=== PATIENT | female | born 2005 | race Caucasian/White ===

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

== ENCOUNTER 2024-07-04 16:38 | Outpatient (CLI) | payer MEDICAID, SELFPAY ==
--- OUTSIDE RECORDS SUMMARY | 2024-07-04 16:47 | XMS_ITS | Continuity of Care Document ---
Author Organization [facility] Address [address] [place] [address] Care Team Providers Care Offset Printing Pressmen Name Role Phone Vicente García Primary Care Physician ( [phone] Encounter [facility] Date(s): 06/12/24 - 06/12/[address] [address] Discharge Disposition: Home or Self Care Attending Physician: Vicente García NP Admitting Physician: Vicente García NP Allergies, Adverse Reactions, Alerts No Known Medication Allergies Substance Criticality Severity Reaction Reaction Severity Status Dust Unable to assess criticality Unknown Active Seasonal Unable to assess criticality Unknown Active Animal Dander Unable to assess criticality Unknown Active Glutens 1, 2 High criticality Moderate Active 1Correction [facility] 02/03/24 2[facility] - 02/03/24 Assessment and Plan Future Appointments Diagnostic Tests Pending * Lisdexamfetamine as Metabolite, Ur SOTO 06/12/24 Future Scheduled Tests Laboratory* Beta hCG Quantitative 04/14/24 * Urinalysis with Microscopic 03/21/24 * Urine Culture 03/21/24 Immunizations Given and Recorded Vaccine Date Status Refusal Reason tetanus/diphth/pertuss (Tdap) adult/adol 10/28/23 Given tetanus/diphth/pertuss (Tdap) adult/adol 08/14/15 Recorded meningococcal B, unspecified 01/08/22 Recorded meningococcal B, unspecified 1, 2 01/08/22 Recorde d SARS-CoV-2 (COVID-19) mRNA BNT-162b2 vax 10/23/21 Recorded SARS-CoV-2 (COVID-19) mRNA BNT-162b2 vax 03/26/21 Recorded SARS-CoV-2 (COVID-19) mRNA BNT-162b2 vax 03/05/21 Recorded influenza, unspecified formulation 10/22/21 Record ed meningococcal ACWY, unspecified formulat 3 01/07/21 Recorded meningococcal ACWY, unspecified formulat 4 12/16/15 Recorded hepatitis A pediatric vaccine 01/02/20 Recorded hepatitis A pediatric vaccine 09/13/17 Recorded hepatitis A pediatric vaccine 08/19/16 Recorded influenza virus vaccine, inactivated 07/02/19 Gregg rded hepatitis B pediatric vaccine 03/18/19 Recorded hepatitis B pediatric vaccine 04 Recorded human papillomavirus vaccine 09/13/18 Recorded human papillomavirus vaccine 08/19/16 Recorded human papillomavirus vaccine 12/16/15 Recorded human papillomavirus vaccine 08/14/15 Recorded human papillomavirus vaccine 05/31/15 Recorded varicella virus vaccine 04/25/09 Recorded varicella virus vaccine 08/11/05 Recorded measles/mumps/rubella virus vaccine 04/25/09 Recor ded measles/mumps/rubella virus vaccine 06/03/05 Recor ded poliovirus vaccine, inactivated 07/18/08 Recorded DTaP, unspecified formulation 07/18/08 Recorded DTaP, unspecified formulation 08/11/05 Recorded Hib, unspecified formulation 08/11/05 Recorded Hib, unspecified formulation 04 Recorded Hib, unspecified formulation 04 Recorded Hib, unspecified formulation 04 Recorded pneumococcal 7-valent vaccine 06/03/05 Recorded pneumococcal 7-valent vaccine 04 Recorded pneumococcal 7-valent vaccine 04 Recorded pneumococcal 7-valent vaccine 04 Recorded diphth/tetanus/pertussis,acel/hepB/polio 04 Recorded diphth/tetanus/pertussis,acel/hepB/polio 04 Recorded diphth/tetanus/pertussis,acel/hepB/polio 04 Recorded 1Result Comment: 4C, OMV 2Result Comment: 4C, OMV duplicate 3Result Comment: MCV4P 4Result Comment: MCV4P Medications Albuterol (Eqv-ProAir HFA) 90 mcg/inh inhalation aerosol 2 puffs, Inhale, every 4 hr, Use inhaler every 4 hours as needed for cough or wheeze., # 8.5 g, 3 Refill(s), Pharmacy: [id number], 170, cm, 08/04/23 15:52:00 EDT, Height/Length Dosing, 146.8, kg, 10/12/23 9:45:00 EST, Weight Dosing Start Date: 10/12/23 Status: Ordered albuterol 90 mcg/inh aerosol inhaler 180 mcg 2 puffs, Inhale, every 4 hr, PRN as needed for wheezing, take 2 puffs prior to exercise andprn as needed, # 8.5 g, 3 Refill(s), Pharmacy: [id number], 170, cm, 01/04/23 16:56:00 EDT, Height/Length Dosing, 140.6, kg, 01/04/23 16:56:00 EDT, Weight Dosing Start Date: 04/27/23 Status: Ordered Flovent HFA 110 mcg/inh inhalation aerosol 2 puffs, Inhale, BID, # 12 g, 0 Refill(s), Pharmacy: [facility], 170, cm, 08/04/23 15:52:00 EDT, Height/Length Dosing, 146.8, kg, 10/12/23 9:45:00 EST, Weight Dosing Start Date: 10/12/23 Status: Ordered omeprazole 40 mg oral delayed release capsule TAKE ONE CAPSULE BY MOUTH EVERY DAY Start Date: 02/16/24 Status: Ordered 19 ([employer]) oral tablet, chewable 1 tab, Chewed, Daily, # 90 tab, 4 Refill(s), Pharmacy: [facility], 170, cm, 01/04/23 16:56:00 EDT, Height/Length Dosing, 140.6, kg, 01/04/23 16:56:00 EDT, Weight Dosing Start Date: 06/23/23 Status: Ordered traZODone 300 mg oral tablet 300 mg = 1 tab, Oral, every night at bedtime, # 90 tab, 3 Refill(s), Pharmacy: [facility], 170, cm, 08/04/23 15:52:00 EDT, Height/Length Dosing, 146.8, kg, 10/12/23 9:45:00 EST, Weight Dosing Start Date: 10/12/23 Status: Ordered triamcinolone 0.025% topical cream 1 daniel, Topical, BID, # 15 g, 1 Refill(s), Pharmacy: [facility], 169.02, cm, 06/12/24 15:24:00 EDT, Height, 149.25, kg, 06/12/24 15:30:00 EDT, Weight Dosing Start Date: 06/12/24 Stop Date: 07/10/24 Status: Ordered Vyvanse 10 mg oral capsule 10 mg = 1 cap, Oral, every morning, # 28 cap, 0 Refill(s), Pharmacy: [facility], 169, cm,04/14/24 22:13:00 EDT, Height, 147, kg, 04/14/24 22:16:00 EDT, Weight Dosing Start Date: 05/16/24 Status: Ordered Problem List Condition Confirmation Course Effective Dates Status H ealth Status Informant Achilles tendonitis Confirmed Active Acne Confirmed Active Allergy to gluten 1 Confirmed 02/03/24 Active Anxiety 2 Confirmed Active Asthma Confirmed Active ADD (attention deficit disorder) without hyperactivity Confirmed Active Back pain Confirmed Active Breakthrough bleeding on Nexplanon Confirmed Active Candidal intertrigo Confirmed Active Ovarian cyst, right Confirmed Active Depressive disorder 3 Confirmed Active Eczema Confirmed Active Infertility, female Confirmed Active GERD (gastroesophageal reflux disease) Confirmed Active Heart murmur Confirmed Active History of oppositional defiant disorder Confirmed Active History of homicidal ideation Confirmed Active History of ventricular septal defect Confirmed Active Insomnia Confirmed Active Irregular menses Confirmed Active Morbidly obese Confirmed Active Oppositional defiant disorder Confirmed Active Pelvic pain Confirmed Active PTSD (post-traumatic stress disorder) Confirmed Active Confirmed 01/15/24 Active Rh negative Confirmed Active Desire for Confirmed Active Stomach problems 4 Confirmed Active Suicide attempt Confirmed 06/26/13 Active Elevated TSH Confirmed 11/12/16 Active 1[facility] 2On Buspirone 3On Venlafaxine and Buspirone 4On Omeprazole. Procedures Procedure Date Related Diagnosis Body Site Status Endoscopy and biopsy 1 01/08/24 Co mpleted Removal - procedure 2 08/16/22 Com pleted Extraction of wisdom tooth 09/20/19 Completed Operative procedure on ankle 3 04/18/17 Completed Myringotomy 4 10/16/06 Completed Echocardiogram 5 04 Complete d 1Duodenal bulb & 1st part of duodenum - blunted villi & scalloping Biopsies taken to evaluate for celiac disease Pathology = Duodenal mucosa w/ subtotal/total villous blunting, crypt hyperplasia & increased intraepithelial lymphocytes. Changes consistant with celiac disease. 2[place] removal. 3has pins, plates and screws 4with pressure equalizing tubes 5also 2004 Social History Social History Type Response Tobacco Never tobacco user T obacco Use:. Sex Female Sex Representation Female (finding) Patient Care team information Care Team Personnel Name: Vicente García PHARMACY SALES ASSISTANT Position: Physician Member Role: Informed Provider Address: [address] [place] [address] [address] [place] [phone] Care Team Related Persons Name: JULY JAMIL Name: SAGE AMOS Insurance Providers Guarantor name: SHAY ACOSTA Health Plan Information #: 1 Payer: [employer] [facility] Member Number: [id number] Policy Number: NA Health Plan Information #: 2 Payer: [facility] MEDICA[facility] Member Number: [id number] Policy Number: NA
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
--- OUTSIDE RECORDS SUMMARY | 2024-07-04 16:48 | XMS_ITS | Encounter Summary ---
Author Organization [facility] Address [address] [place] [address] Care Team Providers Care Enforcement Officer Name Role Phone Yeyo Leach MD Primary Care Provider [phone] Vicente Rodriguez [facility] Primary Care Provider Encounter Details Date Type Department Care Team (Late st Contact Info) Description 05/14/2022 Lab Requisition [facility] Pathology & Laboratory Medicine - [address] [id number] Outr Resulting Lab, Provider Social History Tobacco Use Types Packs/Day Years Used Date Smoking Tobacco: Passive Smo ke Exposure - Never Smoker Sex and Gender Information Value Date Recorded Sex Assigned at Not on file Gender Identity Female 11/15/2023 11:16 EST Sexual Orientation Not on file documented as of this encounter Plan of Treatment Upcoming Encounters Date Type Department Care Team (Late st Contact Info) Description 08/10/2024 13:10 EDT Telemedicine [facility] Gastroenterology - [address] [id number] Ilene Humphery, INSURANCE SALES ASSOCIATE [address] [facility] [place] [id number] documented as of this encounter Procedures Procedure Name Priority Date/Time Associated Diagnosis Comments SYPHILIS SEROLOGY Routine 05/13/2022 20: 05 EDT documented in this encounter Results * SYPHILIS SEROLOGY (05/13/2022 20:05 EDT) Syphilis Serology Negative Negative 05/17/2022 11:59 EDT [facility] Blood VENOUS BLOOD / Unknown 05/13/2022 20:05 EDT 05/14/2022 17:11 EDT Provider Outr Resulting Lab IMMUNOLOGY A ND SEROLOGY ORDERABLES [facility] [address] [place] [address] documented in this encounter Visit Diagnoses Not on filedocumented in this encounter Care Teams Enforcement Officer Relationship Specialty Start Date End Date Yeyo Leach MD [address] [place] [address] [place] [address] PCP - General 12/11/13 11/14/23 Vicente Rodriguez, [facility] [address] [place] [address] [place] [id number] PCP - General Family Medicine - Primary Care 11/15/23 documented as of this encounter
--- OUTSIDE RECORDS SUMMARY | 2024-07-04 16:48 | XMS_ITS | Encounter Summary ---
Author Organization [facility] Address [address] [place] [address] Care Team Providers Care Sales And Events Coordinator Name Role Phone Omari Vicente Levin Robert [facility] Primary Care Provider Reason for Visit * Reason Comments Follow-up Endoscopy results Encounter Details Date Type Department Care Team (Late st Contact Info) Description 02/03/2024 16:30 EDT Telemedicine [facility] Gastroenterology - [address] [phone] Ilene Humphrey, FAITH [address] [facility], [address] [place] [address] Celiac disease (Primary Dx) Social History Tobacco Use Types Packs/Day Years Used Date Smoking Tobacco: Never Passive Smoke Exposure: Yes Smokeless Tobacco: Never Tobacco Cessation:Counseling Given: No Alcohol Use Standard Drinks/Week Comments Not Currently 0 (1 standard drink = 0.6 oz pur e alcohol) Sex and Gender Information Value Date Recorded Sex Assigned at Not on file Gender Identity Female 11/15/2023 11:16 EST Sexual Orientation Not on file documented as of this encounter Last Filed Vital Signs Vital Sign Reading Time Taken Comments Blood Pressure - - Pulse - - Temperature - - Respiratory Rate - - Oxygen Saturation - - Inhaled Oxygen Concentration - - Weight 145.2 kg (320 lb) 02/03/2024 1625 EDT Height 170.2 cm (5' 7.01) 02/03/2024 1625 EDT Body Mass Index 50.11 02/03/2024 1625 EDT documented in this encounter Functional Status Functional Status Response Date of Assess ment Because of a physical, menta l, or emotional condition, does this person have difficulty doing errands alone such as visiting a doctor's office or shopping? No 02/03/2024 Cognitive Status Response Date of Assessm ent Because of a physical, menta l, or emotional condition, does this person have serious difficulty concentrating, remembering, or making decisions? No 02/03/2024 documented as of this encounter Progress Notes * Ilene Humphrey, DEPOSITION OPERATOR - 02/03/2024 1630 EDT Gastroenterology & Hepatology Initial Visit Telemedicine Reason for Referral: Abdominal pain PCP: Vicente Rodriguez This note was dictated using [employer] software for dictation, therefore please excuse any inadvertentdictation errors in this note. Impression: Suspect that many of patient's symptoms may be related to longstanding history of untreated celiac disease. Reviewed that symptoms should slowly improve on a gluten-free diet over the next 6 to 12 months. She also certainly has acid reflux, which has responded to changing how she is taking her omeprazole. She will continue with this medication as it has been helpful for her symptoms. Plan: 1. Celiac disease: -- Start gluten-free diet -- Appointment with Kailee Wagner is scheduled -- Blood work to [facility]; pt to send mychart when completed -- Recommend pneumonia vaccine with PCP -- Recommend screening first-degree family members for celiac disease -- Recommend bone mineral density scan with PCP --Recheck tTG next apt. 2. GERD, n/v: -- Continue omeprazole 40mg PO hs --Follow-up 6 months in person or video HPI: Kristi Smith is a 18 y.o. female with a past medical history of anxiety, elevated TSH, suicide attempt, asthma, depression, eczema, GERD, h/o homicidal ideation, oppositional defiant disorder, PTSD here today for consultation regarding abdominal pain. Since we last spoke, had elevated tTG and biopsies confirmed celiac disease. Has not yet started gluten-free diet. Continues to have abdominal pain. Has 1 bowel movement a day that is soft and formed. Feels like she has complete emptying. No red or black stools. Nausea and vomiting improving with taking omeprazole in the evening instead of in the morning. States her stomach feels like it is less acidic. Therapy tried: Omeprazole 20mg--takes in the morning Zofran--doesn't help Other antacids Pertinent labs, imaging, procedures: 01/09/2024 EGD: - Normal esophagus - Normal stomach - Duodenal bulb and first part of the duodenum characterized by blunted villi and scalloping. Duodenum appeared normal in the more distal sections. Biopsies taken to evaluate for celiac disease (she is eating gluten). A. DUODENUM, BIOPSY: - Duodenal mucosa with subtotal/total villous blunting, crypt hyperplasia and increased intraepithelial lymphocytes. - See comment. Lbs 11/18/2023 IgA 185, tTG 405.2 PMH: As stated in HPI. ROS: A 10-point ROS was performed and is negative other than stated in HPI. Current Outpatient Medications: albuterol 90 mcg/actuation inhaler, Inhale 2 Puffs as directed every 4 hours. (Patient not taking: Reported on 01/09/2024), Disp: , Rfl: guanFACINE (INTUNIV) 1 mg extended release tablet, Take 1 mg by mouth daily. (Patient not taking: Reported on 11/18/2023), Disp: , Rfl: melatonin 3 mg tablet, Take by mouth. (Patient not taking: Reported on 11/18/2023), Disp: , Rfl: omeprazole (PRILOSEC) 40 mg capsule, Take 1 Capsule by mouth daily. (Patient taking differently: Take 1 Capsule by mouth every morning.), Disp: 90 Capsule, Rfl: 1 Prazosin (MINIPRESS) 2 mg capsule, Take 2 mg by mouth at bedtime. (Patient not taking: Reported on 11/18/2023), Disp: , Rfl: vit no.124/iron/folic ( VITAMIN ORAL), Take by mouth every morning., Disp: , Rfl: traZODone (DESYREL) 100 mg tablet, Take 3 Tablets by mouth at bedtime., Disp: , Rfl: VYVANSE 10 mg capsule, Take 1 Capsule by mouth every morning., Disp: , Rfl: Allergies Allergen Reactions Gluten Other (See Comments) Celiac disease Family History: Father's side gallbladder issues. No celiac disease No IBD Mom with stomach ulcers No colon CA ?esophageal CA r/t smoking (great aunt) Social History: NSAIDS: not regularly, occasionally for period ETOH: no Caffeine: rare Tobacco (smoking, vaping, chewing): no Marijuana: Occasional Stress and coping: no, does not seem to correlate Objective: Last Vitals: There were no vitals taken for this visit. General: Well appearing and in NAD. Speech is fluent and clear. Skin: Color pink. HEENT: Conjunctiva pink, sclera white. Resp: No accessory muscle use. Ilene Humphrey NP Gastroenterology & Hepatology * Mariya Ivan MA - 02/03/2024 1630 EDT TELEMEDICINE VIDEO VISIT Today's visit was provided through telemedicine video conferencing: I have reviewed the appropriateness of using video technology with the patient with regards to today's visit. The location of the patient : Home (where patient lives) The location of the provider: Office The following people and their roles were present for today's visit: Appointment Provider: Ilene Humphrey NP The concept of ???Telemedicine?? has been described to the patient.? Patient has been informed of the anticipated benefits and possible risks.? Patient understands the information provided regardingtelemedicine, has had the opportunity to ask questions about this information, and all questions have been answered to patient???s satisfaction. Patient consents for the use of telemedicine in his/her medical care and authorizes the transmission of any relevant medical information to providers and their staff involved in patient???s medical or mental health care. Patient understands that they maybe responsible for copays, deductible or coinsurance for this service. Mariya Ivan MA documented in this encounter Plan of Treatment Upcoming Encounters Date Type Department Care Team (Late st Contact Info) Description 08/10/2024 13:10 EDT Telemedicine [facility] [place] [address] Ilene Humphrey, DEPOSITION OPERATOR [address] [facility], [address] [place] [phone] Scheduled Orders Name Type Priority Associated Diagnoses Orde r Schedule IBC Lab Routine Celiac disease Expected: 02/03/2024 (Approximate), Expires: 02/02/2025 COMPLETE BLOOD COUNT Lab Routine Celiac disease Expected: 02/04/2024 (Approximate), Expires: 02/02/2025 IRON Lab Routine Celiac disease Expected: 02/04/2024 (Approximate), Expires: 02/02/2025 FERRITIN Lab Routine Celiac disease Expected: 02/03/2024 (Approximate), Expires: 02/02/2025 ZINC, SERUM Lab Routine Celiac disease Expected: 02/03/2024 (Approximate), Expires: 02/02/2025 CERULOPLASMIN, S Lab Routine Celiac disease Expected: 02/04/2024 (Approximate), Expires: 02/02/2025 VITAMIN A, S Lab Routine Celiac disease Expected: 02/04/2024 (Approximate), Expires: 02/02/2025 VITAMIN B12 Lab Routine Celiac disease Expected: 02/04/2024 (Approximate), Expires: 02/02/2025 VITAMIN D (25,OH) Lab Routine Celiac disease Expected: 02/04/2024 (Approximate), Expires: 02/02/2025 VITAMIN K1 LEVEL Lab Routine Celiac disease Expected: 02/03/2024 (Approximate), Expires: 02/02/2025 VITAMIN E, SERUM Lab Routine Celiac disease Expected: 02/04/2024 (Approximate), Expires: 02/02/2025 documented as of this encounter Visit Diagnoses Diagnosis Celiac disease- Primary documented in this encounter Care Teams Sales And Events Coordinator Relationship Specialty Start Date End Date Vicente Rodriguez, ELECTRIC CAR OPERATOR- [address] [place] [address] [place] [address] PCP - General Family Medicine - Primary Care 11/15/23 documented as of this encounter
--- OUTSIDE RECORDS SUMMARY | 2024-07-04 16:48 | XMS_ITS | Encounter Summary ---
Author Organization [facility] Address [address] [place] [address] Care Team Providers Care Farm Boss Name Role Phone Vicente Rodriguez [facility] Primary Care Provider Reason for Visit * Reason Comments New Patient Visit Abdominal pain / Not es in Scans * Consult (Routine) - Receiving Office to Obtain Authorization Specialty Diagnoses / Procedures Referred By Contact Referred To Contact Gastroenterology and Hepatology Diagnoses Unspecified abdominal pain Vicente Rdoriguez, [address] [address] [facility] [place] [address] Referral ID Status Reason Start Date Expiration Date Visits Requested Visits Authorized [id number] Receiving Office to Obtain Authorization Specialty Services Required 1 1 Encounter Details Date Type Department Care Team (Latest Contact Info) Description 11/18/2023 10:20 EST Office Visit [facility] Gastroenterology - [address] [address] Ilene Humphrey, HOSPICE COORDINATOR [address] [facility], [facility], [address] [place] [phone] Nausea (Primary Dx); Left lower quadrant pain; Elevated anti-tissue transglutaminase (tTG) IgA level Social History Tobacco Use Types Packs/Day Years Used Date Smoking Tobacco: Passive Smo ke Exposure - Never Smoker Sex and Gender Information Value Date Recorded Sex Assigned at Not on file Gender Identity Female 11/15/2023 11:16 EST Sexual Orientation Not on file documented as of this encounter Last Filed Vital Signs Vital Sign Reading Time Taken Comments Blood Pressure 126/72 11/18/2023 1016 EST Pulse 76 11/18/2023 1016 EST Temperature - - Respiratory Rate - - Oxygen Saturation 97% 11/18/2023 1016 EST Inhaled Oxygen Concentration - - Weight 153.9 kg (339 lb 3.2 oz) 11/18/2023 1016 EST Height 170.2 cm (5' 7) 11/18/2023 1016 EST Body Mass Index 53.13 11/18/2023 1016 EST documented in this encounter Patient Instructions * Patient Instructions* Ilene Humphrey NP - 11/18/2023 10:20 EST IBGard--take as needed for abdominal pain. documented in this encounter Ordered Prescriptions Prescription Sig Dispensed Refills Start Date End Da te omeprazole (PRILOSEC) 40 mg capsule Take 1 Capsule by mouth daily. 90 Capsule 1 11/18/2023 documented in this encounter Progress Notes * Ilene Humphrey NP - 11/18/2023 1020 EST Gastroenterology & Hepatology Initial Visit Reason for Referral: Abdominal pain PCP: Yeyo Leach This note was dictated using [employer] software for dictation, therefore please excuse any inadvertentdictation errors in this note. Impression: Discussed that will recheck tTG and if persistently elevated, will need EGD on gluten containing diet to confirm celiac disease diagnosis. Was on GFD for 2 months without change in symptoms and discussed symptoms may not be related, but it is important to establish dx of celiac disease if present because it is important to be on strict GFD if she does have CD. Discussed it is not just for symptommanagement, but can impact other serious aspects of her health. Suspect n/v may be related to acid reflux. Will change how she takes omeprazole and reviewed lifestyle modifications for GERD. Will complete H. pylori testing for completeness. Does not meet criteria for irritable bowel syndrome as she does not have any diarrhea constipation.Unclear to me that abdominal pelvic pain is GI in etiology as it is not related to bowel movements or eating. We will empirically try an antispasmodic, but she may need to continue to follow with gynecology for ongoing pelvic pain. Low suspicion for endometriosis as patient denies dyspareunia, menorrhagia or dysmenorrhea. Plan: 1. Elevated tTG: --Repeat IgA and tTG --If elevated, plan for EGD with MAC 2. Nausea, vomiting --Start omeprazole 40mg PO hs --HP ordered to be completed prior to PPI start --Will fax HP labs to [facility] -- Provided with GERD handout 3. Abdominal pain: --Try IBGard as needed --Follow-up TBD HPI: Kristi Smith is a 18 y.o. female with a past medical history of anxiety, elevated TSH, suicide attempt, asthma, depression, eczema, GERD, h/o homicidal ideation, oppositional defiant disorder, PTSD here today for consultation regarding abdominal pain. Symptoms started about 2 years ago getting more frequent. Only change she can pinpoint around that time was getting Nexplanon placed, but this has since been removed without change in symptoms. No other changes in diet, stress or medications. Starts with a cramping sensation in left lower quadrant and then becomes generalized to her abdomen. Rocking and bracing her pelvis and back seems to help. Last 3 to 4 minutes at a time and feels like a twisting and cramping sensation. Ultimately resolves without intervention. Not associated with eating or bowel movements. Can be anytime during the day and severe enough to double her over. Had a transvaginal ultrasound with [employer] that reportedly showed right ovarian cyst, but was otherwise unremarkable. Denies dysmenorrhea dyspareunia and menorrhagia. Has 1 bowel movement a day that is soft and formed. Feels like she has complete emptying. No red orblack stools. Has nausea in the morning and vomits every morning to every other morning. Will vomit up food she is just eaten if she tries to eat in the morning, but otherwise will vomit up stomach acid. No heartburn or regurgitation otherwise. Therapy tried: Omeprazole 20mg--takes in the morning Zofran--doesn't help Other antacids Pertinent labs, imaging, procedures: Pertinent history reviewed PMH: As stated in HPI. ROS: A 10-point ROS was performed and is negative other than stated in HPI. Current Outpatient Medications: guanFACINE (INTUNIV) 1 mg extended release tablet, Take 1 mg by mouth daily., Disp: , Rfl: melatonin 3 mg tablet, Take by mouth., Disp: , Rfl: Prazosin (MINIPRESS) 2 mg capsule, Take 2 mg by mouth at bedtime., Disp: , Rfl: No Known Allergies Family History: Father's side gallbladder issues. No celiac disease No IBD Mom with stomach ulcers No colon CA ?esophageal CA r/t smoking (great aunt) Social History: NSAIDS: not regularly, occasionally for period ETOH: no Caffeine: rare Tobacco (smoking, vaping, chewing): no Marijuana: Occasional Stress and coping: no, does not seem to correlate Objective: Last Vitals: BP 126/72 Pulse 76 Ht 170.2 cm (67) Wt (!) 153.9 kg (339 lb 3.2 oz) SpO2 97% BMI 53.13 kg/m?? General: Well appearing and in NAD. Speech is fluent and clear. Skin: Color pink. Warm and dry. Nails without clubbing or cyanosis. HEENT: Conjunctiva pink, sclera white. Resp: No accessory muscle use. Abd: Soft, non-tender, non-distended, positive bowel sounds. No guarding or rebound tenderness. Ilene Humphrey NP Gastroenterology & Hepatology I spent a total of 45 minutes on the date of this encounter meeting with the patient and reviewing documentation/coordinating care as described in the above note. documented in this encounter Plan of Treatment Upcoming Encounters Date Type Department Care Team (Late st Contact Info) Description 08/10/2024 13:10 EDT Telemedicine [facility] Gastroenterology - [address] [address] Ilene Humphrey NP [address] [place] [address], [facility], [address] [place] [address] Scheduled Orders Name Type Priority Associated Diagnoses Orde r Schedule H. PYLORI ANTIGEN Microbiology Routine Nausea Expected: 11/19/2023 (Approximate), Expires: 11/18/2024 documented as of this encounter Results * IGA (11/18/2023 11:56 EST) IgA 185 85 - 499 mg/dL 11/18/2023 14:[address] [facility] Blood VENOUS BLOOD / Unknown Venipuncture / Unknown 11/18/2023 11:56 EST 11/18/2023 12:32 EST Ilene Humphrey NP CHEMISTRY & BLOOD GAS ORDERABLES Performing Organization Address [facility] de Phone Number [facility] [address] [place] [address] * (ABNORMAL) TISSUE TRANSGLUTAMINASE ANTIBODY, IGA (11/18/2023 11:56 EST) Tissue Transglutaminase Antibody, IgA 405.2(H) <20.0 CU 11/18/2023 14:[address] [facility] Comment: Negative: <20.0 CU Weak Positive: 20.0-30.0 CU Positive: >30.0 CU Results were obtained with the [employer] QUANTA Flash h-tTG IgA chemiluminescent immunoassay. Values obtained with different manufacturers' assay methods may not be used interchangeably. Blood VENOUS BLOOD / Unknown Venipuncture / Unknown 11/18/2023 11:56 EST 11/18/2023 12:32 EST Ilene Humphrey NP IMMUNOLOGY AND SER OLOGY ORDERABLES Performing Organization Address City/[facility]/ZIP Co de Phone Number [facility] [address] [place] [address] documented in this encounter Visit Diagnoses Diagnosis Nausea- Primary Nausea alone Left lower quadrant pain Abdominal pain, left lower quadrant Elevated anti-tissue transglutaminase (tTG) IgA level documented in this encounter Historical Medications * This list may reflect changes made after this encounter. Medication Sig Dispensed Refills Start Date End Date traZODone (DESYREL) 100 mg tablet Take 3 Tablets by mouth at bedtime. 03/28/2023 VYVANSE 10 mg capsule Take 1 Capsule by mouth every morning. 09/05/2023 added in this encounter Care Teams Farm Boss Relationship Specialty Start Date End Date Vicente Rodriguez, [facility]- [address] [place] [address] [place] [phone] PCP - General Family Medicine - Primary Care 11/15/23 documented as of this encounter
--- OUTSIDE RECORDS SUMMARY | 2024-07-04 16:48 | XMS_ITS | Encounter Summary ---
Author Organization [facility] Address [address] [place] [address] Care Team Providers Care Crematory Operator Name Role Phone Yeyo Leach MD Primary Care Provider [phone] Vicente Rodriguez [facility] Primary Care Provider Encounter Details Date Type Department Care Team (Late st Contact Info) Description 10/18/2021 Lab Requisition [facility] Pathology & Laboratory Medicine - [address] [phone] Outr Resulting Lab, Provider Social History Tobacco [...] Contact Info) Description 08/10/2024 13:10 EDT Telemedicine [facility] Gastroenterology - [address] [phone] Ilene Humphrey, WADER BOOT TOP ASSEMBLER [address] [facility], [address] [place] [phone] documented as of this encounter Procedures Procedure Name Priority Date/Time Associated Diagnosis Comments ZZCOVID-19 TEST [facility] PCR Today 10/17/2021 19:41 EST COVID-19 TESTING Routine 10/17/2021 19:4 1 EST documented in this encounter Results * COVID-19 TEST [facility] PCR (10/17/2021 19:41 EST) Swab 10/17/2021 19:4 1 EST 10/18/2021 18:01 EST Provider Outr Resulting Lab MICROBIOLOGY - GENERAL ORDERABLES [facility] [address] [place] [address] * COVID-19 TESTING (10/17/2021 19:41 EST) COVID-19 rt-PCR Result Negative Negative 10/19/2021 9:49 EST [facility] Comment: This test has not been FDA cleared or approved. This test has been authorized by FDA under an EUA for use by authorized laboratories. This test has been authorized only for detection of nucleic acid from 2019-nCoV, not for any other viruses or pathogens. This test is only authorized for the duration of the declaration that circumstances exist justifying the authorization of emergency use of in vitro diagnostic tests for detection and/or diagnosis of 2019-nCoV under section 564(b)(1) of Act, 21 U.S.C ?? 360bbb-3(b) (1), unless the authorization is terminated or revoked sooner. Negative results do not preclude 2019-nCoV infection and should not be used as the sole basis for treatment or other patient management decisions. Negative results must be combined with clinical observations, patient history, and epidemiological information. Testing was performed using the maria c SARS-CoV-2 assay ([employer] on the Maria C 6800 System Performing Lab Maria C [address] [facility] 10/19/2021 9:49 EST [facility] Swab 10/17/2021 19:4 1 EST 10/18/2021 18:01 EST Provider Outr Resulting Lab MICROBIOLOGY - GENERAL ORDERABLES [facility] [address] [place] [address] documented in this encounter Visit Diagnoses Not on filedocumented in this encounter Care Teams Crematory Operator Relationship Specialty Start Date End Date Yeyo Leach MD [address] [place] [address] [place] [address] PCP - General 12/11/13 11/14/23 Vicente Rodriguez, [facility] [address] [place] [address] [place] [phone] PCP - General Family Medicine - Primary Care 11/15/23 documented as of this encounter
--- OUTSIDE RECORDS SUMMARY | 2024-07-04 16:48 | XMS_ITS | Encounter Summary ---
Author Organization [facility] Address [address] [place] [address] Care Team Providers Care Mixing Machine Operator Name Role Phone Yeyo Leach MD Primary Care Provider +1 [phone] Vicente Rodriguez [facility] Primary Care Provider Encounter Details Date Type Department Care Team (Late st Contact Info) Description 06/25/2021 Lab Requisition [facility] Pathology & Laboratory Medicine - [address] [address] Outr Resulting Lab, Provider Social History Tobacco Use Types Packs/Day Years Used Date Smoking Tobacco: Never Assessed Sex and Gender Information Value Date Recorded Sex Assigned at Not on file Gender Identity Female 11/15/2023 11:16 EST Sexual Orientation Not on file documented as of this encounter Plan of Treatment Upcoming Encounters Date Type Department Care Team (Late st Contact Info) Description 08/10/2024 13:10 EDT Telemedicine [facility] Gastroenterology - [address] [address] Ilene Humphrey, TRAFFIC CONTROL SIGNALER 111 [facility], [address] [place] [phone] documented as of this encounter Procedures Procedure Name Priority Date/Time Associated Diagnosis Comments MONICA-19 TEST [facility] PCR Today 06/24/2021 14:50 EDT COVID-19 TESTING Routine 06/24/2021 14:5 0 EDT documented in this encounter Results * COVID-19 TEST [facility] PCR (06/24/2021 14:50 EDT) Swab ENTIRE NASOPHARYNX / Unknown 06/24/2021 14:50 EDT 06/25/2021 16:09 EDT Provider Outr Resulting Lab MICROBIOLOGY - GENERAL ORDERABLES [facility] [address] [place] [address] * COVID-19 TESTING (06/24/2021 14:50 EDT) COVID-19 rt-PCR Result Negative Negative 06/26/2021 11:07 EDT [facility] Comment: This test has not [...] using the maria c SARS-CoV-2 assay ([employer] on the Maria C 6800 System Performing Lab Maria C 6800 [facility] 06/26/2021 11:07 EDT [facility] Swab 06/24/2021 14:5 0 EDT 06/25/2021 16:09 EDT Provider Outr Resulting Lab MICROBIOLOGY - GENERAL ORDERABLES [facility] [address] [place] [address] documented in this encounter Visit Diagnoses Not on filedocumented in this encounter Care Teams Mixing Machine Operator Relationship Specialty Start Date End Date Yeyo Leach MD [address] [place] [address] [place] [address] PCP - General 12/11/13 11/14/23 Vicente Rodriguez, [facility]- [address] [place] [address] [place] [phone] PCP - General Family Medicine - Primary Care 11/15/23 documented as of this encounter
--- OUTSIDE RECORDS SUMMARY | 2024-07-04 16:48 | XMS_ITS | Encounter Summary ---
Author Organization [facility] Address [address] [place] [address] Care Team Providers Care Applique Sewer Name Role Phone Yeyo Leach MD Primary Care Provider +1 [phone] Vicente Rodriguez [facility] Primary Care Provider Encounter Details Date Type Department Care Team (Late st Contact Info) Description 05/14/2022 Lab Requisition [facility] Pathology & Laboratory Medicine - [address] [address] Outr Resulting Lab, Provider Social History Tobacco [...] Contact Info) Description 08/10/2024 13:10 EDT Telemedicine [facility] Gastroenterology - [address] [address] Ilene Humphrey, DIGITAL ASSET MANAGER 111 [facility], [address] [place] [phone] documented as of this encounter Procedures Procedure Name Priority Date/Time Associated Diagnosis Comments HIV 1/2 ANTIGEN AND ANTIBODY, 4TH GENERATION Routine 05/13/2022 20:05 EDT documented in this encounter Results * HIV 1/2 ANTIGEN AND ANTIBODY, 4TH GENERATION (05/13/2022 20:05 EDT) HIV 1 and 2 Antibody/p24 Antigen, 4th Generation Negative Negative 05/15/2022 8:55 EDT [facility] Comment:If acute HIV-1 infec tion is suspected in a high risk patient, submit plasma specimen for HIV-1 RNA quantitation test. Blood VENOUS BLOOD / Unknown 05/13/2022 20:05 EDT 05/14/2022 17:11 EDT Narrative [facility] - 05/15/2022 8:55 EDT Fourth Generation assay performed on the Siemens SprinkleBitaur XPT. Provider Outr Resulting Lab IMMUNOLOGY A ND SEROLOGY ORDERABLES [facility] [address] [place] [address] documented in this encounter Visit Diagnoses Not on filedocumented in this encounter Care Teams Applique Sewer Relationship Specialty Start Date End Date Yeyo Leach MD [address] [place] [address] [place] [address] PCP - General 12/11/13 11/14/23 Vicente Rodriguez, GAS DISPATCHER- [address] [place] [address] [place] [address] PCP - General Family Medicine - Primary Care 11/15/23 documented as of this encounter
--- OUTSIDE RECORDS SUMMARY | 2024-07-04 16:48 | XMS_ITS | Encounter Summary ---
Author Organization [facility] Address [address] [place] [address] Care Team Providers Care Auto Glass Technician Name Role Phone Yeyo Leach MD Primary Care Provider [phone] [phone] Vicente Rodriguez [facility] Primary Care Provider Encounter Details Date Type Department Care Team (Late st Contact Info) Description 05/26/[address] [facility] Pathology & Laboratory Medicine - [address] [address] Outr Resulting Lab, Provider Social History Tobacco [...] Contact Info) Description 08/10/2024 13:[address] [facility] Gastroenterology - [address] [address] Ilene Humphrey, CUT AND COVER LINE WORKER 111 [facility], [address] [place] [phone] documented as of this encounter Procedures Procedure Name Priority Date/Time Associated Diagnosis Comments CHLAMYDIA/N. GONORRHOEAE AMPLIFIED NUCLEIC ACID Routine 05/26/2023 16:19 EDT documented in this encounter Results * CHLAMYDIA/N. GONORRHOEAE AMPLIFIED RNA (05/26/2023 16:19 EDT) Neisseria gonorrhoeae Result Negative Negative 05/27/2023 14:23 EDT [facility] Chlamydia trachomatis Result Negative Negative 05/27/2023 14:23 EDT [facility] Swab ENTIRE VAGINA / Unknown 05/26/2023 16:19 EDT 05/26/2023 22:16 EDT Provider Outr Resulting Lab MICROBIOLOGY - GENERAL ORDERABLES Performing Organization Address City/State/[facility] Co de Phone Number [facility] [address] [place] [address] documented in this encounter Visit Diagnoses Not on filedocumented in this encounter Care Teams Auto Glass Technician Relationship Specialty Start Date End Date Yeyo Leach MD [address] [place] [address] [place] [address] PCP - General 12/11/13 11/14/23 Vicente Rodriguez, [facility]- [address] [place] [address] [place] [phone] PCP - General Family Medicine - Primary Care 11/15/23 documented as of this encounter
--- OUTSIDE RECORDS SUMMARY | 2024-07-04 16:48 | XMS_ITS | Encounter Summary ---
Author Organization [facility] Address [address] [place] [address] Care Team Providers Care Dumpling Machine Operator Name Role Phone Omari Tonidionisio Vicente C [facility] Primary Care Provider Reason for Visit * Reason Onset Date Comments Other 05/25/2024 Encounter Details Date Type Department Care Team (Late st Contact Info) Description 05/25/2024 Telephone [facility] Gastroenterology - [address] [phone] Ilene Humphrey, FAITH 111 [facility], [address] [place] [address] Other Social History Tobacco Use Types Packs/Day Years Used Date Smoking Tobacco: Never Passive Smoke Exposure: Yes Smokeless Tobacco: Never Alcohol Use Standard Drinks/Week Comments Not Currently 0 (1 standard drink = 0.6 oz pur e alcohol) Sex and Gender Information Value Date Recorded Sex Assigned at Not on file Gender Identity Female 11/15/2023 11:16 EST Sexual Orientation Not on file documented as of this encounter Functional Status Functional Status Response [...] No 02/03/2024 documented as of this encounter Miscellaneous Notes * Telephone Encounter - Eva Jensen - 05/25/2024 1125 EDT Called [id number] to bump apt with Ilene on 08/10 documented in this encounter Plan of Treatment Upcoming Encounters Date Type Department Care Team (Late st Contact Info) Description 08/10/2024 13:10 EDT Telemedicine [facility] Gastroenterology - [address] [phone] Ilene Humphrey, DECORATIVE ENGRAVER APPRENTICE 111 [facility], [address] [place] [phone] documented as of this encounter Visit Diagnoses Not on filedocumented in this encounter Care Teams Dumpling Machine Operator Relationship Specialty Start Date End Date Vicente Rodriguez, CHILD AND FAMILY SERVICES SPECIALIST- [address] [place] [address] [place] [phone] PCP - General Family Medicine - Primary Care 11/15/23 documented as of this encounter
--- OUTSIDE RECORDS SUMMARY | 2024-07-04 16:48 | XMS_ITS | Encounter Summary ---
Author Organization [facility] Address [address] [place] [address] Care Team Providers Care Bilingual Office Assistant Name Role Phone Yeyo Leach MD Primary Care Provider +1 [phone] Vicente Rodriguez [facility] Primary Care Provider Encounter Details Date Type Department Care Team (Late st Contact Info) Description 05/14/2022 Lab Requisition [facility] Pathology & Laboratory Medicine - [address] [address] Outr Resulting Lab, Provider Social History Tobacco [...] Contact Info) Description 08/10/2024 13:10 EDT Telemedicine [facility] Gastroenterology - [address] [address] Ilene Humphrey, COATER OPERATOR 111 [facility], [address] [place] [phone] documented as of this encounter Procedures Procedure Name Priority Date/Time Associated Diagnosis Comments CHLAMYDIA/N. GONORRHOEAE AMPLIFIED NUCLEIC ACID Routine 05/13/2022 20:05 EDT documented in this encounter Results * CHLAMYDIA/N. GONORRHOEAE AMPLIFIED RNA (05/13/2022 20:05 EDT) Neisseria gonorrhoeae Result Negative Negative 05/15/2022 14:45 EDT [facility] Chlamydia trachomatis Result Negative Negative 05/15/2022 14:45 EDT [facility] Urine URINE / Unknown 05/13/2022 2 0:05 EDT 05/14/2022 17:48 EDT Narrative [facility] - 05/15/2022 14:45 EDT A first catch urine specimen is acceptable for detection of Gonorrhea and Chlamydia, but might detect up to 10% fewer infections when compared with vaginal and endocervical swab samples. Provider Outr Resulting Lab MICROBIOLOGY - GENERAL ORDERABLES [facility] [address] [place] [address] documented in this encounter Visit Diagnoses Not on filedocumented in this encounter Care Teams Bilingual Office Assistant Relationship Specialty Start Date End Date Yeyo Leach MD [address] [place] [address] [place] [address] PCP - General 12/11/13 11/14/23 Vicente Rodriguez, [facility] [address] [place] [address] [place] [address] PCP - General Family Medicine - Primary Care 11/15/23 documented as of this encounter
--- OUTSIDE RECORDS SUMMARY | 2024-07-04 16:48 | XMS_ITS | Referral Summary ---
Author Organization [facility] Address [address] [place] [address] Care Team Providers Care Title Insurance Sales Representative Name Role Phone Omari Vicente Levin Robert [facility] Primary Care Provider Encounters Date Type Department Care Team Description 05/25/2024 Telephone [facility] Gastroenterology - [facility] [address] [place] [address] Ilene Humphrey, FAITH Other from Last 3 Months Allergies Active Allergy Reactions Criticality Noted Date Comments Gluten Other (See Comments) 01/18/2024 Celiac disease Medications Medication Sig Dispensed Refills Start Date End Date Status guanFACINE (INTUNIV) 1 mg extended release tablet Take 1 mg by mouth daily. Active melatonin 3 mg tablet Take by mouth. Active Prazosin (MINIPRESS) 2 mg capsule Take 2 mg by mouth at bedtime. Active VYVANSE 10 mg capsule Take 1 Capsule by mouth every morning. 09/05/2023 Active traZODone (DESYREL) 100 mg tablet Take 3 Tablets by mouth at bedtime. 03/28/2023 Active omeprazole (PRILOSEC) 40 mg capsule Take 1 Capsule by mouth daily. 90 Capsule 1 11/18/2023 Active Additional Information Patient taking differently:40 mg oralEVERY MORNING, Reported on 01/02/2024 vit no.124/iron/folic ( VITAMIN ORAL) Take by mouth every morning. Active albuterol 90 mcg/actuation inhaler Inhale 2 Puffs as directed every 4 hours. Active Active Problems Problem Noted Date Diagnosed Date Celiac disease 01/18/2024 Psychiatric diagnosis 06/12/2014 Social History Tobacco Use Types Packs/Day Years [...] 11:16 EST Sexual Orientation Not on file Last Filed Vital Signs Vital Sign Reading Time Taken Comments Blood Pressure 144/89 01/09/2024 0905 EDT Pulse 76 11/18/2023 1016 EST Temperature 36.6 ??C (97.9 ??F) 01/09/2024 0839 EDT Respiratory Rate 19 01/09/2024 0905 EDT Oxygen Saturation 98% 01/09/2024 0905 EDT Inhaled Oxygen Concentration - - Weight 145.2 kg (320 lb) 02/03/2024 1625 EDT Height 170.2 cm (5' 7.01) 02/03/2024 1625 EDT Body Mass Index 50.11 02/03/2024 1625 EDT Functional Status Functional Status Response Date of [...] concentrating, remembering, or making decisions? No 02/03/2024 Plan of Treatment Upcoming Encounters Date Type Department Care Team (Late st Contact Info) Description 08/10/2024 13:10 EDT Telemedicine [facility] Gastroenterology - [address] [address] Ilene Humphrey NP [address] [place] [address], [facility], [address] [place] [address] Procedures Procedure Name Priority Date/Time Associated Diagnosis Comments HEPATITIS C AB W REFLEX TO HCV RNA BY PCR Routine 03/21/2024 14:56 EDT from Last 3 Months or Most Recently Relevant to Health Maintenance Results * HEPATITIS C AB W REFLEX TO HCV RNA BY PCR (03/21/2024 14:56 EDT) Hep C Antibody Negative Negative 03/21/2024 23:29 EDT [facility] Blood VENOUS BLOOD / Unknown 03/21/2024 14:56 EDT 03/21/2024 21:37 EDT Provider Outr Resulting Lab CHEMISTRY & BLOOD GAS ORDERABLES [facility] [address] [place] [address] from Last 3 Months or Most Recently Relevant to Health Maintenance Care Teams Title Insurance Sales Representative Relationship Specialty Start Date End Date Vicente Rodriguez, [facility] [address] [place] [address] [place] [address] PCP - General Family Medicine - Primary Care 11/15/23
--- OUTSIDE RECORDS SUMMARY | 2024-07-04 16:48 | XMS_ITS | Encounter Summary ---
Author Organization [facility] Address [address] [place] [address] Care Team Providers Care Fire Alarm Inspector Name Role Phone Yeyo Leach MD Primary Care Provider +1 -[phone] Vicente Rodriguez [facility] Primary Care Provider Encounter Details Date Type Department Care Team (Late st Contact Info) Description 06/08/2023 Lab Requisition [facility] Pathology & Laboratory Medicine - [address] [phone] Outr Resulting Lab, Provider Social History Tobacco [...] Contact Info) Description 08/10/2024 13:10 EDT Telemedicine [facility] Gastroenterology - [address] [address] Ilene Humphrey, DRAIN TECHNICIAN 111 [facility], [address] [place] [phone] documented as of this encounter Procedures Procedure Name Priority Date/Time Associated Diagnosis Comments PROLACTIN Routine 06/08/2023 14:17 EDT ESTRADIOL, ADULTS Routine 06/08/2023 14: 17 EDT TESTOSTERONE, TOTAL AND FREE Routine 06/08/2023 14:17 EDT [facility] Routine 06/08/2023 14:17 EDT documented in this encounter Results * TESTOSTERONE, TOTAL AND FREE (06/08/2023 14:17 EDT) Testosterone 21 12 - 43 ng/dL 06/08/2023 22:50 EDT [facility] Comment:The results of this assay can be falsley elevated due to the consumption of Biotin. Sex Hormone Bnd Glob 19.4 See Note nmol/L 06/08/2023 22:50 EDT [facility] Comment: NOTE: ---- Reference Ranges for Females Pre-Menopausal: ?17.7 - 138.2 nmol/L Post-Menopausal: ?? 23.7 - 110.6 nmol/L The results of this assay can be falsely lowered due to the consumption of Biotin. Free Testosterone 0.5 <=1.2 ng/dL 06/08/2023 22:50 EDT [facility] Comment: NOTE: Reference Range has not been established for Free Testosterone in females less than 20 years old. Blood VENOUS BLOOD / Unknown 06/08/2023 14:17 EDT 06/08/2023 21:20 EDT Narrative [facility] - 06/08/2023 22:50 EDT This test is not recommended in patients with plasma protein abnormalities. Provider Outr Resulting Lab CHEMISTRY & BLOOD GAS ORDERABLES [facility] [address] [place] [address] * ESTRADIOL, ADULTS (06/08/2023 14:17 EDT) Estradiol 83 See Note pg/mL 06/08/2023 22:05 EDT [facility] Comment: NOTE: FEMALE REFERENCE RANGES: MENSTRUATING ? By cycle day relative to LH peak Follicular ?(-12 to -4 days) ??20-144 pg/mL Midcycle ?(-3 to +2 days) ?? 64-357 pg/mL Luteal ?(+4 t0 +12 days) ??56-214 pg/mL POSTMENOPAUSAL ?<32 pg/mL *Cross reactivity with Fulvestrant could lead to a falsely elevated estradiol result in patients treated with this drug. Blood VENOUS BLOOD / Unknown 06/08/2023 14:17 EDT 06/08/2023 21:20 EDT Provider Outr Resulting Lab CHEMISTRY & BLOOD GAS ORDERABLES [facility] [address] [place] [address] * PROLACTIN (06/08/2023 14:17 EDT) Prolactin 6.9 See Note ng/mL 06/08/2023 22:46 EDT [facility] Comment: NOTE: Female Reference Ranges: PHYSIOLOGICAL STATUS ?REFERENCE RANGE ? Postmenopausal ?1.8 - 20.3 ng/mL ?9.7 - 208.5 ng/mL Non- ?2.8 - 29.2 ng/mL Blood VENOUS BLOOD / Unknown 06/08/2023 14:17 EDT 06/08/2023 21:20 EDT Provider Outr Resulting Lab CHEMISTRY & BLOOD GAS ORDERABLES Performing Organization Address [facility] Co de Phone Number [facility] [address] [place] [address] * FSH (06/08/2023 14:17 EDT) FSH 4.4 See Note mIU/mL 06/08/2023 22:47 EDT [facility] Blood VENOUS BLOOD / Unknown 06/08/2023 14:17 EDT 06/08/2023 21:20 EDT Narrative [facility] - 06/08/2023 22:47 EDT NOTE: Female FSH Reference Ranges (Menstruating): PHYSIOLOGICAL STATUS ? REFERENCE RANGE ? Follicular (-12 to -4 days): ?? 2.5 - 10.2 mIU/mL Midcycle (-3 to +2 days): ?3.4 - 33.4 mIU/mL Luteal (+4 to +12 days): ? 1.5 - 9.1 mIU/mL Postmenopausal: ?23.0 - 116.3 mIU/mL Reference Ranges for pediatric non-menstruating female patients have not been established. Provider Outr Resulting Lab CHEMISTRY & BLOOD GAS ORDERABLES Performing Organization Address City/[facility]/ZIP Co de Phone Number [facility] [address] [place] [address] documented in this encounter Visit Diagnoses Not on filedocumented in this encounter Care Teams Fire Alarm Inspector Relationship Specialty Start Date End Date Yeyo Leach MD [address] [place], [place] [address] [address] PCP - General 12/11/13 11/14/23 Vicente Rodriguez, [facility]- [address] [place] [address] [place] [phone] PCP - General Family Medicine - Primary Care 11/15/23 documented as of this encounter
--- OUTSIDE RECORDS SUMMARY | 2024-07-04 16:48 | XMS_ITS | Encounter Summary ---
Author Organization [facility] Address [address] [place] [address] Care Team Providers Care Petrologist Name Role Phone Yeyo Leach MD Primary Care Provider +1 [phone] Encounter Details Date Type Department Care Team (Latest Contact Info) Description 12/11/2013 11:17 EST - 12/11/2013 11:53 EST Hospital Encounter [facility] - [address] [phone] Unknown, Provider, Discharge Disposition: Home or Self Care Social History Tobacco Use Types Packs/Day Years Used Date Smoking Tobacco: Never Assessed Sex and Gender Information Value Date Recorded Sex Assigned at Not on file Gender Identity Female 11/15/2023 11:16 EST Sexual Orientation Not on file documented as of this encounter Discharge Diagnoses Diagnosis 780.99 OTHER GENERAL SYMPTOMS[ICD-9-CM] documented in this encounter Discharge Disposition Disposition Code Departure Means Destination Home or Self Care documented in this encounter Plan of Treatment Upcoming Encounters Date Type Department Care Team (Late st Contact Info) Description 08/10/2024 13:10 EDT Telemedicine [facility] Gastroenterology - [facility] [address] [place], [place] [address] Ilene Humphrey, BOOK CRITIC 111 [facility], [address] [place] [address] documented as of this encounter Visit Diagnoses Not on filedocumented in this encounter Care Teams Petrologist Relationship Specialty Start Date End Date Yeyo Leach MD [address] [place] [address] PCP - General 12/11/13 11/14/23 documented as of this encounter
--- OUTSIDE RECORDS SUMMARY | 2024-07-04 16:48 | XMS_ITS | Encounter Summary ---
Author Organization [facility] Address [address] [place] [address] Care Team Providers Care Shoe Laster Name Role Phone Omari Poonam Vicente C [facility] Primary Care Provider Encounter Details Date Type Department Care Team (Late st Contact Info) Description 11/18/2023 11:00 EST Phlebotomy Only [facility] ED Center 2 Phlebotomy [address], [place] [address] Personal Companion, Acc Phlebotomy Nausea Social History Tobacco Use Types Packs/Day Years [...] Contact Info) Description 08/10/2024 13:10 EDT Telemedicine [facility] Gastroenterology - [facility] [address], [place] [address] Ilene Humphrey, HYDROPONICS WORKER [address] [facility], [address] [place] [address] documented as of this encounter Procedures Procedure Name Priority Date/Time Associated Diagnosis Comments TISSUE TRANSGLUTAMINASE ANTIBODY, IGA Routine 11/18/2023 11:56 EST Nausea IGA Routine 11/18/2023 11:56 EST Nausea documented in this encounter Results * IGA (11/18/2023 11:56 EST) IgA 185 85 - 499 mg/dL 11/18/2023 14:28 EST [facility] Blood VENOUS BLOOD / Unknown Venipuncture / Unknown 11/18/2023 11:56 EST 11/18/2023 12:32 EST Ilene Humphrey HYDROPONICS WORKER CHEMISTRY & BLOOD GAS ORDERABLES Performing Organization Address [facility] de Phone Number [facility] [address] [place] [address] * (ABNORMAL) TISSUE TRANSGLUTAMINASE ANTIBODY, IGA (11/18/2023 11:56 EST) Tissue Transglutaminase Antibody, IgA 405.2(H) <20.0 CU 11/18/2023 14:54 EST [facility] Comment: Negative: <20.0 CU Weak Positive: 20.0-30.0 CU Positive: >30.0 CU Results were obtained with the [employer] QUANTA Flash h-tTG IgA chemiluminescent immunoassay. Values obtained with different manufacturers' assay methods may not be used interchangeably. Blood VENOUS BLOOD / Unknown Venipuncture / Unknown 11/18/2023 11:56 EST 11/18/2023 12:32 EST Ilene Humphrey HYDROPONICS WORKER IMMUNOLOGY AND SER OLOGY ORDERABLES Performing Organization Address [facility] Co de Phone Number [facility] [address] [place] [address] documented in this encounter Visit Diagnoses Diagnosis Nausea Nausea alone documented in this encounter Care Teams Shoe Laster Relationship Specialty Start Date End Date Vicente Rodriguez, HAND KNITTER- [address] [place] [address] [place] [address] PCP - General Family Medicine - Primary Care 11/15/23 documented as of this encounter
--- OUTSIDE RECORDS SUMMARY | 2024-07-04 16:48 | XMS_ITS | Encounter Summary ---
Author Organization [facility] Address [address] [place] [address] Care Team Providers Care Mechanical Designer Name Role Phone Yeyo Leach MD Primary Care Provider [phone] Vicente Rodriguez [facility] Primary Care Provider Encounter Details Date Type Department Care Team (Late st Contact Info) Description 04/30/2022 Lab Requisition [facility] Pathology & Laboratory Medicine - [address] [address] Outr Resulting Lab, Provider Social History Tobacco [...] Contact Info) Description 08/10/2024 13:10 EDT Telemedicine [facility] Gastroenterology - [address] [address] Ilene Humphrey, [facility] 111 [facility], [address] [place] [id number] documented as of this encounter Procedures Procedure Name Priority Date/Time Associated Diagnosis Comments ZZCOVID-19 TEST [facility] PCR Today 04/30/2022 11:00 EDT COVID-19 TESTING Routine 04/30/2022 11:0 0 EDT documented in this encounter Results * COVID-19 TEST [facility] PCR (04/30/2022 11:00 EDT) Swab 04/30/2022 11:0 0 EDT 05/01/2022 22:16 EDT Provider Outr Resulting Lab MICROBIOLOGY - GENERAL ORDERABLES [facility] [address] [place] [id number] * COVID-19 TESTING (04/30/2022 11:00 EDT) COVID-19 rt-PCR Result Negative Negative 05/02/2022 11:31 EDT [facility] Comment: This test [...] using the maria c SARS-CoV-2 assay ([employer] on the Maria C 6800 System Performing Lab Maria C [address]00 [facility] 05/02/2022 11:31 EDT [facility] Swab 04/30/2022 11:0 0 EDT 05/01/2022 22:16 EDT Provider Outr Resulting Lab MICROBIOLOGY - GENERAL ORDERABLES [facility] [address] [place] [address] documented in this encounter Visit Diagnoses Not on filedocumented in this encounter Care Teams Mechanical Designer Relationship Specialty Start Date End Date Yeyo Leach MD [address] [place] [address] [place] [address] PCP - General 12/11/13 11/14/23 Vicente Rodriguez, [facility]- [address] [place] [address] [place] [phone] PCP - General Family Medicine - Primary Care 11/15/23 documented as of this encounter
--- OUTSIDE RECORDS SUMMARY | 2024-07-04 16:48 | XMS_ITS | Encounter Summary ---
Author Organization [facility] Address [address] [place] [address] Care Team Providers Care Front Desk Manager Name Role Phone Yeyo Leach MD Primary Care Provider [phone] Reason for Visit * Reason Comments Abdominal Pain Encounter Details Date Type Department Care Team (Latest Contact Info) Description 06/12/2014 10:06 EDT - 06/12/2014 14:27 EDT Hospital Encounter [facility] Urgent Care - [address] [id number] Dimitri Hernández MD [address] [place] [address] Unknown, ProviderMD Abdominal pain, unspecified site (Primary Dx) Discharge Disposition: Home or Self Care Social [...] Sign Reading Time Taken Comments Blood Pressure 130/71 06/12/2014 1032 EDT Pulse 101 06/12/2014 1032 EDT Temperature 37.2 ??C (99 ??F) 06/12/2014 1032 EDT Respiratory Rate 18 06/12/2014 1032 EDT Oxygen Saturation - - Inhaled Oxygen Concentration - - Weight 84.9 kg (187 lb 2 oz) 06/12/2014 1032 EDT Height - - Body Mass Index - - documented in this encounter Discharge Diagnoses Diagnosis 789.00 ABDOMINAL PAIN UNSPEC SITE[ICD-9-CM] documented in this encounter Discharge Instructions * Discharge Instructions* Dimitri Hernández MD - 06/12/2014 14:08 EDT As we discussed, the symptoms are less likely due to a more severe cause such as appendicitis, but we were unable to do any blood or evaluate fully for this. Continue to monitor your symptoms. Stay well hydrated. Eat a bland diet and advance as able. Follow up with your regular doctor if your symptoms fail to improve. If you have worsening pain, fevers, pain localizes in one spot presents to the emergency department for further evaluation. Speak to your PCP about having your blood work drawn. * Attachments The following attachments cannot be sent through Care Everywhere. * ABDOMINAL PAIN : PEDIATRIC ([employer] [place]) documented in this encounter Medications at Time of Discharge Medication Sig Dispensed Refills Start Date End Date guanFACINE (INTUNIV) 1 mg extended release tablet Take 1 mg by mouth daily. melatonin 3 mg tablet Take by mouth. Prazosin (MINIPRESS) 2 mg capsule Take 2 mg by mouth at bedtime. documented as of this encounter Discharge Disposition Disposition Code Departure Means Destination Home or Self Care Car documented in this encounter Progress Notes * Patti Mejia RN - 06/12/2014 1411 EDT Unable to draw blood on patient by nurses. lamination technician here from Phlebotomy but patient would not let them draw her blood. documented in this encounter ED Notes * Dimitri Hernández MD - 06/12/2014 1135 EDT DOS: 06/12/2014 Chief Complaint Patient presents with ??? Abdominal Pain The patient is a 9 y.o. female who presents today with Abdominal Pain HPI Comments: Patient presents today for concern of upper abdominal pain that started about one week ago and has worsened yesterday and today. She had nausea and vomiting yesterday. She is still passing gas. She has no constipation-she is having normal bowel movements. No diarrhea. She has no fevers. She has had some chills. She denies cold symptoms including cough. No chest discomfort. She has no burning on urination. No blood in her urine or pelvic pain. She was around a family member who was sick with diarrhea. She denies chronic similar symptoms, but does member having had abdominal pain in the past. She cannot recall what it was diagnosed as or if she needed any specific treatment. She spends a few days a week with her mother. She spends the rest of the time at the [facility].She is here today with two [facility] caseworkers. She has been taking her guaifenesin as well as Prazosin. Presents and was increased two weeks ago. She has no history of abdominal surgeries. No travel. Her caseworkers would like her to be evaluated for diabetes-they have requested blood attempts in the past, but the patient had been unwilling. PCP is at [facility]. No other new problems today. The history is provided by the patient (Here with two [facility] case workers). Abdominal Pain Pain location: In upper stomach, into middle stomach. Pain quality: throbbing Pain severity: Severe Onset quality: Gradual Duration: For the past week. Timing: Constant Progression: Worsening (Worse yesteday) Chronicity: New Context: sick contacts (was around stepfather who sick with diarrhea for the past three weeks) Context: not medication withdrawal (Has had prazosin increased 2 weeks ago), not previous surgeries, not recent illness, not recent travel, not suspicious food intake and not trauma Diet changes: noteating as much as usual. Exacerbated by: Nothing in particular. Ineffective treatments: Acetaminophen (TUMS) Associated symptoms: chills (eating less), nausea and vomiting (one episode) Associated symptoms: no chest pain, no constipation, no cough, no diarrhea, no dysuria, no fatigue,no fever, no hematuria, no sore throat, no vaginal bleeding and no vaginal discharge Flatus: passing gas without problem. Risk factors: obesity Risk factors: has not had multiple surgeries Review of Systems Constitutional: Positive for chills (eating less) and appetite change. Negative for fever and fatigue. HENT: Negative for sore throat. Denies cold symptoms Respiratory: Negative for cough. Cardiovascular: Negative for chest pain and leg swelling. Gastrointestinal: Positive for nausea, vomiting (one episode) and abdominal pain. Negative for diarrhea, constipation and blood in stool. Flatus: passing gas without problem. Genitourinary: Negative for dysuria, urgency, hematuria, flank pain, vaginal bleeding, vaginal discharge, difficulty urinating, menstrual problem and pelvic pain. Has not started menses (premenarche) Musculoskeletal: Positive for back pain (at times). Skin: Negative for rash. Neurological: Negative for headaches. Psychiatric/Behavioral: History psychiatric problems No current facility-administered medications for this encounter. Current Outpatient Prescriptions Medication Sig Dispense Refill ??? guanFACINE (INTUNIV) 1 mg extended release tablet Take 1 mg by mouth daily. ??? melatonin 3 mg tablet Take by mouth. ??? Prazosin (MINIPRESS) 2 mg capsule Take 2 mg by mouth at bedtime. No Known Allergies Patient Active Problem List Diagnosis Date Noted ??? Psychiatric diagnosis 06/12/2014 History reviewed. No pertinent past medical history. History Substance Use Topics ??? Smoking status: Not on file ??? Smokeless tobacco: Not on file ??? Alcohol Use: Not on file History reviewed. No pertinent family history. BP 130/71 Pulse 101 Temp(Src) 99 ??F (37.2 ??C) (Temporal) Resp 18 Wt 84.879 kg (187 lb 2 oz) Physical Exam Nursing note and vitals reviewed. Constitutional: Vital signs are normal. She appears well-developed and well- nourished. She is active and cooperative. Non-toxic appearance. She does not have a sickly appearance. She does not appear ill. No distress. Ear with two caseworkers. Patient looks well, moving about in bed without difficulty. HENT: Head: Normocephalic and atraumatic. Right Ear: Tympanic membrane, external ear, pinna and canal normal. Left Ear: Tympanic membrane, external ear, pinna and canal normal. Mouth/Throat: Mucous membranes are moist. No oropharyngeal exudate, pharynx swelling, pharynx erythema or pharynx petechiae. No tonsillar exudate. Pharynx is normal. Eyes: Conjunctivae are normal. Neck: Neck supple. No adenopathy. No tenderness is present. Cardiovascular: Normal rate and regular rhythm. No murmur heard. Pulses: Femoral pulses are 2+ on the right side, and 2+ on the left side. Pulmonary/Chest: Effort normal and breath sounds normal. No stridor. No respiratory distress. Air movement is not decreased. She has no wheezes. She has no rhonchi. She has no rales. She exhibits no retraction. Abdominal: Soft. Bowel sounds are normal. She exhibits no distension, no mass and no abnormal umbilicus. No surgical scars. There is no hepatosplenomegaly. No signs of injury. There is tenderness (slight upper abdomen). There is no rigidity, no rebound and no guarding. Musculoskeletal: Right lower leg: Normal. She exhibits no tenderness, no swelling, no edema and no deformity. Left lower leg: Normal. She exhibits no tenderness, no swelling, no edema and no deformity. Neurological: She is alert. She is not disoriented. Skin: Skin is warm. Capillary refill takes less than 3 seconds. No rash noted. She is not diaphoretic. Psychiatric: She has a normal mood and affect. Her speech is normal and behavior is normal. Judgment and thought content normal. Cognition and memory are normal. Calm PCP: Yeyo Leach MD Results for orders placed during the hospital encounter of 06/12/14 POCT URINE DIPSTICK Result Value Range Color YELLOW Clarity, UA Clear Glucose Neg Neg Bilirubin Neg Neg Ketones Neg Neg Specific Saline >=1.030 1.001 - 1.035 Blood Neg Neg pH 5.5 4.6 - 8.0 Protein Neg Neg Urobilinogen 0.2 0.2 - 1.0 E.U./dl Nitrite Neg Neg Leuk Esterase Neg Neg Tech ID [id number] Radiology orders: None Procedures Assessment & Plan, Course: A medical screening exam was performed. 9 year old female with history of psychiatric disease who presents with abdominal pain for the past week, worsening. Urine is unremarkable. Discussed workup with caretakers. Would consider blood work, they recommend bloodwork for diabetes which has been ordered in the past, but the patient has been unwilling to have done. Blood work is ordered, but patient will not allow it to be performed. Overall do believe her chance of appendicitis is low. Question gastroenteritis, functional pain, component of anxiety. She is to follow up acutely if you change or worsening symptoms as we discussed. To do supportive care for discomfort. Follow up with PCP. Discuss having other blood work done at that time. Questions and concerns were answered. Case workers expressed understanding of plan. Case workers appreciative of care. Disposition: Discharged The patient's pain was managed to an adequate level weighing risk vs. benefit of further medications. Upon departure from the [facility], the patient's pain was 10 on a zero to ten scale. Appears comfortable. Condition at departure from the [facility]: Stable Final diagnoses: Abdominal pain, unspecified site No supervision required. MDM Signed: Dimitri Hernández MD 06/12/2014 14:16 * Breann Mac RN - 06/12/2014 1048 EDT Patient here with [facility] workers, patient reports upper abdominal pain and mild nausea,intermittent low back pain, intermittent chills starting one week ago and worsening since then.Decreased appetite past two days,and vomited x1 yesterday.Took tums and ibuprofen last night with poor relief.Was able to eat breakfast today. Denies diarrhea,constipation,sore throat,ear pain,sinus pain/pressure/drainage,injury. documented in this encounter Plan of Treatment Upcoming Encounters Date Type Department Care Team (Late st Contact Info) Description 08/10/2024 13:10 EDT Telemedicine [facility] Gastroenterology - [address] [address] Ilene Humphrey NP [address] [facility], [address] [place] [address] documented as of this encounter Procedures Procedure Name Priority Date/Time Associated Diagnosis Comments POCT URINE DIPSTICK, CLINITEK STAT 06/12/2014 10:36 EDT Abdominal pain, unspecified site documented in this encounter Results * POCT URINE DIPSTICK (06/12/2014 10:36 EDT) Color YELLOW [facility] Clarity, UA Clear [facility] Glucose Neg Neg [facility] Bilirubin Neg Neg [facility] Ketones Neg Neg [facility] Specific Saline >=1.030 1.001 - 1.035 [facility] Blood Neg Neg [facility] pH 5.5 4.6 - 8.0 [facility] Protein Neg Neg [facility] Urobilinogen 0.2 0.2 - 1.0 E.U./dl [facility] Nitrite Neg Neg [facility] Leuk Esterase Neg Neg [facility] quality assurance associate ID [id number] [facility] Comment:Test performed at [facility] Urine specimen (specimen) 06/12/2014 10:36 EDT 06/12/2014 10:40 EDT Dimitri Hernández MD POINT OF CARE TEST ORDERABLES [facility] [address] [place] [address] documented in this encounter Visit Diagnoses Diagnosis Abdominal pain, unspecified site- Primary documented in this encounter Administered Medications Inactive Administered Medications - up to 3 most recent administrations Medication Order MAR Action Action Date Dose Rate Site lidocaine-prilocaine (EMLA) 2.5-2.5 % cream topical (top), NOW X1, 1 dose, On Tue06/12/14 at 1200 Given 06/12/2014 12:17 EDT documented in this encounter Historical Medications * This list may reflect changes made after this encounter. Medication Sig Dispensed Refills Start Date End Date Prazosin (MINIPRESS) 2 mg capsule Take 2 mg by mouth at bedtime. melatonin 3 mg tablet Take by mouth. guanFACINE (INTUNIV) 1 mg extended release tablet Take 1 mg by mouth daily. added in this encounter Active and Recently Administered Medications Times are shown in EDT. Scheduled Medication Order 06/10/2014 06/11/2014 06/12/2014 lidocaine-prilocaine (EMLA) 2.5-2.5 % cream (COMPLETED) topical (top), NOW X1, 1 dose, On Tue06/12/14 at 1200 1217 (Given - Provid er: Estela Rod, MARC) documented in this encounter Care Teams Front Desk Manager Relationship Specialty Start Date End Date Yeyo Leach MD [address] [facility] [address] PCP - General 12/11/13 11/14/23 documented as of this encounter
--- OUTSIDE RECORDS SUMMARY | 2024-07-04 16:48 | XMS_ITS | Encounter Summary ---
Author Organization [facility] Address [address] [place] [address] Care Team Providers Care Riprap Placing Supervisor Name Role Phone Omari Vicente Levin Robert [facility] Primary Care Provider Reason for Referral * Referral (Routine/Next Available) - Authorization Not Required Specialty Diagnoses / Procedures [facility] Referred To Contact Diagnoses Elevated anti-tissue transglutaminase (tTG) IgA level Procedures UPPER ENDOSCOPY (EGD) UPPER ENDOSCOPY (EGD) MT ESOPHAGOGASTRODUODENOSCOPY TRANSORAL DIAGNOSTIC MT EGD TRANSORAL BIOPSY SINGLE/MULTIPLE MT ANESTHESIA UPPER GI ENDOSCOPIC PX NOS Ilene Humphrey, FAITH [address] [facility] [address] [place] [address] [facility] [address] [place] [address] Referral ID Status Reason Start Date Expiration Date Visits Requested Visits Authorized [id number] Authorization Not Required 11/22/2023 1 1 Reason for Visit * Referral (Routine/Next Available) - Authorization Not Required Specialty Diagnoses / Procedures Referred By Contac t Referred To Contact Diagnoses Elevated anti-tissue transglutaminase (tTG) IgA level Procedures UPPER ENDOSCOPY (EGD) UPPER ENDOSCOPY (EGD) MT ESOPHAGOGASTRODUODENOSCOPY TRANSORAL DIAGNOSTIC MT EGD TRANSORAL BIOPSY SINGLE/MULTIPLE MT ANESTHESIA UPPER GI ENDOSCOPIC PX NOS Ilene Humphrey NP [address] [address] [facility] [address] [place] [address] Referral ID Status Reason Start Date Expiration Date Visits Requested Visits Authorized [id number] Authorization Not Required 11/22/2023 1 1 Encounter Details Date Type Department Care Team (Late st Contact Info) Description 01/09/2024 5:54 EDT - 01/09/2024 23:59 EDT Hospital Encounter [facility] - [address] [address] Delaney Diaz MD [address] [place] [phone] Frandy Diaz Erina, MD [address] [place] [phone] Elevated anti-tissue transglutaminase (tTG) IgA level Discharge Disposition: Home or Self Care Social [...] Blood Pressure 144/89 01/09/2024 0905 EDT Pulse - - Temperature 36.6 ??C (97.9 ??F) 01/09/2024 0839 EDT Respiratory Rate 19 01/09/2024 0905 EDT Oxygen Saturation 98% 01/09/2024 0905 EDT Inhaled Oxygen Concentration - - Weight 145.2 kg (320 lb) 01/09/2024 0713 EDT Height 170.2 cm (5' 7) 01/09/2024 0713 EDT Body Mass Index 50.12 01/09/2024 0713 EDT documented in this encounter Medications at Time of Discharge Medication Sig Dispensed Refills Start Date End Date albuterol 90 mcg/actuation inhaler Inhale 2 Puffs as directed every 4 hours. guanFACINE (INTUNIV) 1 mg extended release tablet Take 1 mg by mouth daily. melatonin 3 mg tablet Take by mouth. omeprazole (PRILOSEC) 40 mg capsule Take 1 Capsule by mouth daily. 90 Capsule 1 11/18/2023 Prazosin (MINIPRESS) 2 mg capsule Take 2 mg by mouth at bedtime. vit no.124/iron/folic ( VITAMIN ORAL) Take by mouth every morning. traZODone (DESYREL) 100 mg tablet Take 3 Tablets by mouth at bedtime. 03/28/2023 VYVANSE 10 mg capsule Take 1 Capsule by mouth every morning. 09/05/2023 documented as of this encounter Discharge Disposition Disposition Code Departure Means Destination Home or Self Care documented in this encounter H&P Notes * Delaney Diaz MD - 01/09/2024 0810 EDT Endoscopy Sedation for Procedure History & Physical Date: 01/09/2024 Time: 8:09 Location: [facility] Planned Procedure: Upper Endoscopy Chief Complaint/Indications for Procedure: Elevated anti-tissue transglutaminase (tTG) IgA level History Previous Complication with Sedation and/or Anesthesia? No Allergies: No Known Allergies Current Medications: Current Outpatient Medications Medication albuterol 90 mcg/actuation inhaler guanFACINE (INTUNIV) 1 mg extended release tablet melatonin 3 mg tablet omeprazole (PRILOSEC) 40 mg capsule Prazosin (MINIPRESS) 2 mg capsule vit no.124/iron/folic ( VITAMIN ORAL) traZODone (DESYREL) 100 mg tablet VYVANSE 10 mg capsule Current Facility-Administered Medications Medication Route Frequency acetaminophen (TYLENOL) solution unit dose cup 650 mg oral PRN Or acetaminophen (TYLENOL) tablet 650 mg oral PRN atropine 0.1 mg/mL syringe 0.5 mg intravenous PRN diphenhydrAMINE (BENADRYL) injection 25 mg intravenous Once PRN ketOROLAC (TORADOL) injection 30 mg intravenous Now sodium chloride 0.9 % (NS) infusion intravenous PRN Or lactated ringers (LR) infusion intravenous PRN lactated ringers (LR) infusion intravenous CONTINUOUS lidocaine 1 % injection 2 mg intradermal PRN lidocaine 1 % injection 2 mg intradermal PRN naloxone (NARCAN) injection 0.2 mg intravenous PRN ondansetron (PF) (ZOFRAN) injection 4 mg intravenous PRN sodium chloride 0.9 % (flush) flush 3 mL intravenous PRN sodium chloride 0.9 % (flush) flush 5 mL intravenous Q8H Past Medical History: Past Medical History: Diagnosis Date ADD (attention deficit disorder) Noted 01/02/24: Managed w/Vyvanse Anxiety Noted 01/02/24: Asthma Noted 01/02/24: Triggers are smoke, last used inhaler 1 mos ago Depression Noted 01/02/24 Does not exercise Noted 01/02/24: Very active, 1-2 FOS without any SOB Eczema Notd 01/02/24: no longer an issue GERD (gastroesophageal reflux disease) Noted 01/02/24: well managed on meds. Heart murmur Noted 01/02/24: Had as a child per pt History of general anesthesia Noted 01/02/24: Slow to wake History of ventricular septal defect Noted 01/02/24: Had as a child per pt Lung disease Other acne Noted 01/02/24: Face Panic attacks Noted 01/02/24 Psychiatric problem Slow to wake up after anesthesia Noted 01/02/24: Slow to wake Social History: Past Surgical History: Procedure Laterality Date ANKLE FRACTURE SURGERY Right MYRINGOTOMY WISDOM TOOTH EXTRACTION Social History Tobacco Use Smoking status: Never Passive exposure: Yes Smokeless tobacco: Never Substance Use Topics Alcohol use: Not Currently Family History: Family History Problem Relation Age of Onset No Known Father Review of Systems as pertinent: Physical Exam Vital Signs: BP (!) 143/71 Temp 36 ??C (96.8 ??F) (Temporal) Resp 16 Ht 170.2 cm (67) Wt (!) 145.2 kg (320 lb) LMP 12/04/2023 (Approximate) SpO2 97% BMI 50.12 kg/m?? Heart Examination: Cardiac Regularity: Regular Respiratory Examination: Respiratory Pattern: Regular Breath Sounds Right: Clear Breath Sounds Left: Clear Abdominal Examination: Soft, non-tender, bowel sounds normal, no masses, no organomegaly Additional physical exam related to the proposed procedure, patient activity, disease state and treatment as pertinent: Assessment Previous complications with sedation or anesthesia?: No Airway Concerns: None/NA Anesthesia Classification: ASA 3 Plan: Proceed with sedation for procedure Fasting Time: Date of Last Liquid: 01/08/24 Time of Last Liquid: 2029 Date of Last Solid: 01/08/24 Time of Last Solid: 2029 Patient Appropriate Candidate for Planned Sedation?: Yes Delaney Diaz MD 01/09/2024 8:09 documented in this encounter Miscellaneous Notes * Result Encounter Note - Delaney Diaz MD - 01/09/2024 0810 EDT Dear Kristi, Just a quick note to let you know that the biopsy results from your recent endoscopy are consistentwith celiac disease, just as we suspected. I know you have follow up with Ilene, and she will discuss further with you the next steps. Please let me know if you have any questions or concerns in the meantime. Take care, Delaney Diaz MD documented in this encounter Plan of Treatment Upcoming Encounters Date Type Department Care Team (Late st Contact Info) Description 08/10/2024 13:10 EDT Telemedicine [facility] - [address] [address] Ilene Humphrey NP [address] [place] [address], [facility] [address] [place] [address] Pending Results Name Type Priority Associated Diagnoses Date /Time UPPER ENDOSCOPY (EGD) GI Routine Elevated anti-tissue transglutaminase (tTG) IgA level 01/09/2024 8:22 EDT Scheduled Orders Name Type Priority Associated Diagnoses Orde r Schedule UPPER ENDOSCOPY (EGD) GI Routine Elevated Anti-Tissue Transglutaminase (Ttg) Iga Level 1 Occurrences starting 01/09/2024 until 01/09/2024 documented as of this encounter Procedures Procedure Name Priority Date/Time Associated Diagnosis Comments UPPER ENDOSCOPY PROCEDURE Routine 01/09/2024 8:32 EDT SURGICAL PATHOLOGY Routine 01/09/2024 8:25 EDT Elevated anti-tissue transglutaminase (tTG) IgA level POCT TEST, CLINITEK Routine 01/09/2024 7:12 EDT POCT CSN BARCODE URINE PREG TEST Routine 01/09/2024 7:09 EDT POCT TEST, CLINITEK ORDER Routine 01/09/2024 7:09 EDT documented in this encounter Results * UPPER ENDOSCOPY PROCEDURE (01/09/2024 8:32 EDT) Anatomical Region Laterality Modality Endoscopy Narrative 01/09/2024 8:32 EDT Procedure Performed EGD Indications for Exam elevated TTG Procedure Technique A physical exam was performed. Informed consent was obtained from the patient after explaining all the risks (perforation, bleeding, infection and adverse effects to the medicine), benefits and alternatives to the procedure which the patient appeared to understand and so stated. ??The patient was connected to the monitoring devices and placed in the left lateral position. Continuous oxygen was provided with a nasal cannula and IV medicine administered through a indwelling cannula. After adequate sedation was achieved the gastroscope was inserted under direct vision into the esophagus and then carefully advanced to the Second Part of Duodenum. The Second Part of Duodenum was identified by visual landmarks. The scope was subsequently removed slowly while carefully examining the color, texture, anatomy, and integrity of the mucosa on withdrawal. The patient was subsequently transferred to the recovery area in satisfactory condition. Estimated Blood Loss: None Complications None Medications MAC Anesthesia See Anesthesia Record Findings - Normal esophagus - Normal stomach - Duodenal bulb and first part of the duodenum characterized by blunted villi and scalloping. Duodenum appeared normal in the more distal sections. Biopsies taken to evaluate for celiac disease (she is eating gluten). Diagnosis - Normal esophagus - Normal stomach - Duodenal bulb and first part of the duodenum characterized by blunted villi and scalloping. Duodenum appeared normal in the more distal sections. Biopsies taken to evaluate for celiac disease (she is eating gluten). Recommendations Follow biopsy results. The??procedure??was??performed??by??Dr. Franco Scruggs M.D. in the presence of Dr. Delaney Diaz. The attending physician was in the room for the entire procedure. This electronic signature authenticates all electronic and/or handwritten documentation, including orders, generated by the signer during the episode of care contained in this record. 01/09/2024 08:32:15 AM By Delaney Diaz MD Delaney Diaz MD GI PROCEDURE ORDShameka ESCOBEDO * SURGICAL PATHOLOGY (01/09/2024 8:25 EDT) Note to Patient The following pathology results have been interpreted by your pathologist and may be available to you before your health provider has had the opportunity to review them. Please allow time for your provider to receive these results and explore management options, if applicable. 01/10/2024 12:01 [facility] Final Diagnosis A. DUODENUM, BIOPSY: - Duodenal mucosa with subtotal/total villous blunting, crypt hyperplasia and increased intraepithelial lymphocytes. - See comment. 01/10/2024 12:01 [facility] Diagnosis Comment The histological changes would be consistent with celiac disease in the proper clinical and serological settings. The elevated TTG is noted. 01/10/2024 12:01 [facility] Attestation By the signature below, the attending physician certifies that they have 1) personally conducted a gross and/or microscopic examination of the described specimen(s), and/or personally interpreted the results of laboratory testing of the described specimen(s), and 2) personally rendered or confirmed the above diagnosis. 01/10/2024 12:01 [facility] at 1201 Clinical History Elevated TTG 01/10/2024 12:01 [facility] Gross Description A. Received in formalin labelled with proper patient identification (initials C, J) and duodenum bx are four millard tissue fragments ranging from 0.2 x 0.1 x 0.1 cm to 0.4 x 0.2 x 0.2 cm. Entirely submitted in A1. AIMEE CHASE(ASCP) 01/09/2024 12:00 01/10/2024 12:01 EDT [facility] Performing Lab [facility] 12:01 EDT [facility] Scanned Images 01/10/2024 12:01 EDT [facility] Tissue DUODENAL STRUCTURE / Unknown 01/09/2024 8:25 EDT 01/09/2024 9:47 EDT Delaney Diaz MD PATHOLOGY ORDERAB LES Performing Organization Address City/[facility]/ZIP Co de Phone Number [facility] [address] [place] [address] * POCT TEST, CLINITEK (01/09/2024 7:12 EDT) UPT Result Negative Negative 01/09/2024 7:18 EDT [facility] HN LAB COMMENT (CLINITEK, UPT) Test Performed by Nursing Services 01/09/2024 7:18 EDT [facility] Comment:False negative resul ts may occur in women who are beyond 5-8 weeks gestation. Diagnosis of should be based on a correlation of test results with typical clinical signs and symptoms. Urine URINE SPECIMEN OBTAINED BY CLEAN CATCH PROCEDURE / Unknown 01/09/2024 7:12 EDT 01/09/2024 7:18 EDT Delaney Diaz MD POINT OF CARE WENDY T ORDERABLES Performing Organization Address City/[facility]/ZIP Co de Phone Number [facility] [address] [place] [address] * POCT CSN BARCODE URINE PREG TEST (01/09/2024 7:09 EDT) Urine URINE SPECIMEN OBTAINED BY CLEAN CATCH PROCEDURE / Unknown 01/09/2024 7:09 EDT 01/09/2024 7:09 EDT Delaney Diaz MD LAB INFO SERVICE AND SUPPORT & PHONE RESULT [facility] [address] [place] [address] documented in this encounter Visit Diagnoses Diagnosis Elevated anti-tissue transglutaminase (tTG) IgA level documented in this encounter Administered Medications Inactive Administered Medications - up to 3 most recent administrations Medication Order MAR Action Action Date Dose Rate Site lactated ringers (LR) infusion 30 mL/hr, intravenous, PRN, Starting on 01/09/24 at 0708, Until Damaris 01/12/24 at 0209, Routine, Preprocedure Continued by Anesthesia 01/09/2024 8:11 EDT 30 mL/hr New Bag 01/09/2024 7:27 EDT 30 mL/hr 30 mL/hr documented in this encounter Orders Medications Ordered That Christian ht Not Have Been Administered Count Last Ordered Date First Ordered Date acetaminophen (TYLENOL) solu tion unit dose cup 650 mg 1 01/09/2024 acetaminophen (TYLENOL) tablet 650 mg 1 atropine 0.1 mg/mL syringe 0.5 mg 1 024 diphenhydrAMINE (BENADRYL) injection 25 mg 1 01/09/2024 ketOROLAC (TORADOL) injection 30 mg 1 01/08 lactated ringers (LR) infusion 1 01/09/2024 lidocaine 1 % injection 2 mg 2 01/09/2024 naloxone (NARCAN) injection 0.2 mg 1 2023 ondansetron (PF) (ZOFRAN) injection 4 mg 1 01/09/2024 sodium chloride 0.9 % (flush) flush 3 mL 1 01/09/2024 sodium chloride 0.9 % (flush) flush 5 mL 1 01/09/2024 sodium chloride 0.9 % (NS) infusion 1 01/08 documented in this encounter Care Teams Riprap Placing Supervisor Relationship Specialty Start Date End Date Vicente Rodriguez, TREASURY ASSISTANT-BC [address] [place] [address] [place] [address] PCP - General Family Medicine - Primary Care 11/15/23 documented as of this encounter
--- OUTSIDE RECORDS SUMMARY | 2024-07-04 16:48 | XMS_ITS | Encounter Summary ---
Author Organization [facility] Address [address] [place] [address] Care Team Providers Care Market Survey Representative Name Role Phone Yeyo Leach MD Primary Care Provider [phone] Vicente Rodriguez [facility] Primary Care Provider Encounter Details Date Type Department Care Team (Late st Contact Info) Description 01/22/2022 Lab Requisition [facility] Pathology & Laboratory Medicine - [address] [id number] Outr Resulting Lab, Provider Social History Tobacco [...] Description 08/10/2024 13:10 EDT Telemedicine [facility] Gastroenterology - [address] [address] Ilene Humphrey, SPEEDER TENDER [address] [facility], Level [address] [place] [phone] documented as of this encounter Procedures Procedure Name Priority Date/Time Associated Diagnosis Comments ZZCOVID-19 TEST [facility] PCR Today 01/21/2022 11:25 EDT COVID-19 TESTING Routine 01/21/2022 11:2 5 EDT documented in this encounter Results * COVID-19 TEST [facility] PCR (01/21/2022 11:25 EDT) Swab 01/21/2022 11:2 5 EDT 01/22/2022 16:30 EDT Provider Outr Resulting Lab MICROBIOLOGY - GENERAL ORDERABLES [facility] [address] [place] [address] * COVID-19 TESTING (01/21/2022 11:25 EDT) COVID-19 rt-PCR Result Negative Negative 01/23/2022 11:03 EDT [facility] Comment: This test has not [...] using the maria c SARS-CoV-2 assay ([employer] on the Maria C 6800 System Performing Lab [facility] [address] [facility] 01/23/2022 11:03 EDT [facility] Swab 01/21/2022 11:2 5 EDT 01/22/2022 16:30 EDT Provider Outr Resulting Lab MICROBIOLOGY - GENERAL ORDERABLES [facility] [address] [place] [address] documented in this encounter Visit Diagnoses Not on filedocumented in this encounter Care Teams Market Survey Representative Relationship Specialty Start Date End Date Yeyo Leach MD [address] [place] [address] [place] [address] PCP - General 12/11/13 11/14/23 Vicente Rodriguez, [facility]- [address] [place] [address] [place] [phone] PCP - General Family Medicine - Primary Care 11/15/23 documented as of this encounter
--- OUTSIDE RECORDS SUMMARY | 2024-07-04 16:48 | XMS_ITS | Encounter Summary ---
Author Organization [facility] Address [address] [place] [address] Care Team Providers Care It Data Architect Name Role Phone Yeyo Leach MD Primary Care Provider [phone] Vicente Rodriguez [facility] Primary Care Provider Encounter Details Date Type Department Care Team (Late st Contact Info) Description 12/24/2021 Lab Requisition [facility] Pathology & Laboratory Medicine - [address] [phone] Outr Resulting Lab, Provider Social History Tobacco [...] Contact Info) Description 08/10/2024 13:10 EDT Telemedicine [facility] Gastroenterology - [address] [id number] Ilene Humphrey, STORAGE MANAGEMENT ARCHITECT 111 [facility], [address] [place] [phone] documented as of this encounter Procedures Procedure Name Priority Date/Time Associated Diagnosis Comments CHLAMYDIA/N. GONORRHOEAE AMPLIFIED NUCLEIC ACID Routine 12/23/2021 15:10 EST documented in this encounter Results * CHLAMYDIA/N. GONORRHOEAE AMPLIFIED RNA (12/23/2021 15:10 EST) Neisseria gonorrhoeae Result Negative Negative 12/25/2021 14:50 EST [facility] Chlamydia trachomatis Result Negative Negative 12/25/2021 14:50 EST [facility] Urine URINE / Unknown 12/23/2021 1 5:10 EST 12/24/2021 20:15 EST Narrative [facility] - 12/25/2021 14:50 EST A first catch urine specimen is acceptable for detection of Gonorrhea and Chlamydia, but might detect up to 10% fewer infections when compared with vaginal and endocervical swab samples. Provider Outr Resulting Lab MICROBIOLOGY - GENERAL ORDERABLES Performing Organization Address City/State/[facility] [[email or web address]] Co de Phone Number [facility] [address] [place] [address] documented in this encounter Visit Diagnoses Not on filedocumented in this encounter Care Teams It Data Architect Relationship Specialty Start Date End Date Yeyo Leach MD [address] [place] [address] [place] [address] PCP - General 12/11/13 11/14/23 Vicente Rodriguez, [facility]- [address] [place] [address] [place] [address] PCP - General Family Medicine - Primary Care 11/15/23 documented as of this encounter
--- OUTSIDE RECORDS SUMMARY | 2024-07-04 16:48 | XMS_ITS | Clinical Summary ---
[place] [address] Care Team Providers Care Senior Environmental Engineer Name Role Phone Unknown Primary Care Provider Unavailabl e Allergies No known active allergies Social History Tobacco Use Types Packs/Day Years Used Date Smoking Tobacco: Never Assessed Sex and Gender Information Value Date Recorded Sex Assigned at Not on file Gender Identity Not on file Sexual Orientation Not on file Plan of Treatment Health Maintenance Due Date Last Done Comments Chlamydia Screening 2019 HPV vaccine (1 - 3-dose series) 2019 HIV screen 2022 Hepatitis C Screening 2022 Hepatitis B vaccine (0-59 yrs) (1) 2023 Tdap adult 2023 Tetanus vaccine 2023 Covid-19 Vaccine ( - 2022- season) 2024 Influenza (Flu) vaccine (1 o f 1 - Influenza standard series) 06/17/2024 Care Teams Senior Environmental Engineer Relationship Specialty Start Date End Date Unknown None PCP - General 03/02/22
--- OUTSIDE RECORDS SUMMARY | 2024-07-04 16:48 | XMS_ITS | Encounter Summary ---
Author Organization [facility] Address [address] [place] [address] Care Team Providers Care Payroll Accounting Clerk Name Role Phone Omari Levin Vicente C [facility] Primary Care Provider Encounter Details Date Type Department Care Team (Late st Contact Info) Description 03/21/2024 Lab Requisition [facility] Pathology & Laboratory Medicine - [facility] [address] [place] [address] Outr Resulting Lab, Provider Social History Tobacco [...] No 02/03/2024 documented as of this encounter Plan of Treatment Upcoming Encounters Date Type Department Care Team (Late st Contact Info) Description 08/10/2024 13:10 EDT Telemedicine [facility] Gastroenterology - [facility] [address], [place] [address] Ilene Humphrey, PET CARE WORKER 111 [facility], [facility], [address] [place] [phone] documented as of this encounter Procedures Procedure Name Priority Date/Time Associated Diagnosis Comments SYPHILIS SEROLOGY Routine 03/21/2024 14: 56 EDT HEPATITIS C AB W REFLEX TO HCV RNA BY PCR Routine 03/21/2024 14:56 EDT RUBELLA IGG ANTIBODY Routine 03/21/2024 14:56 EDT HEPATITIS B SURFACE ANTIGEN Routine 03/21/2024 14:56 EDT HIV 1/2 ANTIGEN AND ANTIBODY, 4TH GENERATION Routine 03/21/2024 14:56 EDT documented in this encounter Results * RUBELLA IGG ANTIBODY (03/21/2024 14:56 EDT) Rubella IgG Ab Positive See Note 03/22/2024 10:32 EDT [facility] Comment:Positive for IgG ant ibodies to Rubella virus. Blood VENOUS BLOOD / Unknown 03/21/2024 14:56 EDT 03/21/2024 21:37 EDT Provider Outr Resulting Lab CHEMISTRY & BLOOD GAS ORDERABLES [facility] [address] [place], [place] [address] * HEPATITIS B SURFACE ANTIGEN (03/21/2024 14:56 EDT) Hep B Surface Ag Negative Negative 03/21/2024 23:01 EDT [facility] Blood VENOUS BLOOD / Unknown 03/21/2024 14:56 EDT 03/21/2024 21:37 EDT Provider Outr Resulting Lab CHEMISTRY & BLOOD GAS ORDERABLES Performing Organization Address City/[facility]/ZIP Co de Phone Number [facility] [address], [place] [phone] * HEPATITIS C AB W REFLEX TO HCV RNA BY PCR (03/21/2024 14:56 EDT) Hep C Antibody Negative Negative 03/21/2024 23:29 EDT [facility] Blood VENOUS BLOOD / Unknown 03/21/2024 14:56 EDT 03/21/2024 21:37 EDT Provider Outr Resulting Lab CHEMISTRY & BLOOD GAS ORDERABLES Performing Organization Address [facility] de Phone Number [facility] [address] [place] [address] * HIV 1/2 ANTIGEN AND ANTIBODY, 4TH GENERATION (03/21/2024 14:56 EDT) Pathologist [facility] HIV 1 and 2 Antibody/p24 Antigen, 4th Generation Negative Negative 03/22/2024 9:57 EDT [facility] Comment:If acute HIV-1 infec tion is suspected in a high risk patient, submit plasma specimen for HIV-1 RNA quantitation test. Blood VENOUS BLOOD / Unknown 03/21/2024 14:56 EDT 03/21/2024 21:37 EDT Narrative [facility] - 03/22/2024 9:57 EDT Fourth Generation assay performed on the Siemens Centaur XPT. Provider Outr Resulting Lab IMMUNOLOGY A ND SEROLOGY ORDERABLES Performing Organization Address City/[facility]/ZIP Co de Phone Number [facility] [address], [place] [phone] * SYPHILIS SEROLOGY (03/21/2024 14:56 EDT) Syphilis Serology Negative Negative 03/22/2024 10:31 EDT [facility] Blood VENOUS BLOOD / Unknown 03/21/2024 14:56 EDT 03/21/2024 21:37 EDT Provider Outr Resulting Lab IMMUNOLOGY A ND SEROLOGY ORDERABLES [facility] [address] [place] [address] documented in this encounter Visit Diagnoses Not on filedocumented in this encounter Care Teams Payroll Accounting Clerk Relationship Specialty Start Date End Date Vicente Rodriguez, [employer]- [address] [place] [address] [place] [phone] PCP - General Family Medicine - Primary Care 11/15/23 documented as of this encounter
--- OUTSIDE RECORDS SUMMARY | 2024-07-04 16:48 | XMS_ITS | Encounter Summary ---
Author Organization [facility] [place] [address] Care Team Providers Care Washer Carcass Name Role Phone Rwdg-[id number] Covington APRN Primary Care Provide r Reason for Visit * Reason Onset Date Comments Referral 09/06/2016 Encounter Details Date Type Department Care Team (Late st Contact Info) Description 09/06/2016 Telephone Weight and Wellness at [facility] [address] [place] [phone] Dwight Yeh MD [facility] [place] [address] Referral Social History Tobacco Use Types Packs/Day Years Used Date Smoking Tobacco: Never Assessed Sex and Gender Information Value Date Recorded Sex Assigned at Not on file Gender Identity Not on file Sexual Orientation Not on file documented as of this encounter Miscellaneous Notes * Telephone Encounter - Jolly Joyner RN - 09/21/2016 3:55 PM EST Contacted family regarding recent referral. They expressed interest in moving forward with the [facility]. Call transferred to audio visual tech to book appointment. * Telephone Encounter - Dwight Yeh MD - 09/14/2016 10:07 PM EST [facility] Referral Note Name: Kristi Smith MR: [id number] : 2005 Age: 11 y.o. 4 m.o. PCP:Jade Price APRN TUNNEL ELASTIC OPERATOR ZIGZAG:No primary care provider on file. Note to scheduling: [ ] scanned labs available for review DiIAGNOSIS / CONCERN: SCHEDULING- PROVIDER: [ ] Hyperlipidemia without elevated BMI: [ ] Rochelle [ ] Dalia [ ] Either [ x ] Elevated BMI +/- comorbidities: [ ] Rochelle [ ] Rao [ x ] Either Additional information: * Telephone Encounter - Alberto Boucher - 09/06/2016 4:46 PM EST Called PCP office family has not done the Lipid panel that is mentioned in the office note. Please see scanned growth charts and office notes. documented in this encounter Plan of Treatment Not on file documented as of this encounter Visit Diagnoses Not on filedocumented in this encounter Care Teams Washer Carcass Relationship Specialty Start Date End Date Jade Price APRN PCP - General Family Medicine 08/26/16 03/08/21 documented as of this encounter
--- OUTSIDE RECORDS SUMMARY | 2024-07-04 16:48 | XMS_ITS | Encounter Summary ---
Author Organization [facility] Address [address] [place] [address] Care Team Providers Care Wharf Tender Name Role Phone Yeyo Leach MD Primary Care Provider [phone] Reason for Referral * (Routine/Next Available) - Receiving Office to Obtain Authorization Specialty Diagnoses / Procedures Referred By Contac t Referred To Contact Procedures CT OUTSIDE IMAGES ABDOMEN PELVIS Unknown, ProviderMD Referral ID Status Reason Start Date Expiration Date Visits Requested Visits Authorized [id number] Receiving Office to Obtain Authorization 3 1 1 Reason for Visit * (Routine/Next Available) - Receiving Office to Obtain Authorization Specialty Diagnoses / Procedures Referred By Contac t Referred To Contact Procedures CT OUTSIDE IMAGES ABDOMEN PELVIS Unknown, MD Lurdes Referral ID Status Reason Start Date Expiration Date Visits Requested Visits Authorized [id number] Receiving Office to Obtain Authorization 3 1 1 Encounter Details Date Type Department Care Team (Latest Contact Info) Description 08/04/2023 18:55 EDT - 08/04/2023 23:59 EDT Hospital Encounter [facility] [place] Discharge Disposition: Home or Self Care Social History Tobacco Use Types Packs/Day Years Used Date Smoking Tobacco: Passive Smo ke Exposure - Never Smoker Sex and Gender Information Value Date Recorded Sex Assigned at Not on file Gender Identity Female 11/15/2023 11:16 EST Sexual Orientation Not on file documented as of this encounter Medications at Time of Discharge Medication Sig Dispensed Refills Start Date End Date guanFACINE (INTUNIV) 1 mg extended release tablet Take 1 mg by mouth daily. melatonin 3 mg tablet Take by mouth. Prazosin (MINIPRESS) 2 mg capsule Take 2 mg by mouth at bedtime. traZODone (DESYREL) 100 mg tablet Take 3 Tablets by mouth at bedtime. 03/28/2023 documented as of this encounter Discharge Disposition Disposition Code Departure Means Destination Home or Self Care documented in this encounter Plan of Treatment Upcoming Encounters Date Type Department Care Team (Late st Contact Info) Description 08/10/2024 13:10 EDT Telemedicine [facility] Gastroenterology - [address] [phone] Ilene Humphrey DIAL SCREW ASSEMBLER 111 [facility], [facility], [address] [place] [phone] documented as of this encounter Procedures Procedure Name Priority Date/Time Associated Diagnosis Comments CT OUTSIDE IMAGES ABDOMEN PELVIS Routine 08/04/2023 18:55 EDT documented in this encounter Results * CT OUTSIDE IMAGES ABDOMEN PELVIS (08/04/2023 18:55 EDT) Narrative 08/04/2023 18:55 EDT This is a non-reportable exam. Provider Unknown MD TOTH OTHER IMAGING OR DERABLES documented in this encounter Visit Diagnoses Not on filedocumented in this encounter Care Teams Wharf Tender Relationship Specialty Start Date End Date Yeyo Leach MD [address] [place] [address] [place] [address] PCP - General 12/11/13 11/14/23 documented as of this encounter
--- OUTSIDE RECORDS SUMMARY | 2024-07-04 16:48 | XMS_ITS | Clinical Summary ---
Author Organization [facility] Address [address] [place] [address] Care Team Providers Care Relationship Assoc Name Role Phone Omari Vicente Levin Robert [facility] Primary Care Provider Allergies Active Allergy Reactions Criticality Noted Date [...] Date Celiac disease 01/18/2024 Psychiatric diagnosis 06/12/2014 Encounters Date Type Department Care Team Description 05/25/[address] [facility] Gastroenterology - [place] [address] [place] [address] Ilene Humphrey, TECHNICAL MAINTENANCE SPECIALIST Other from Last 3 Months Surgical History Surgery Date Site/Laterality Comments WISDOM TOOTH EXTRACTION ANKLE FRACTURE SURGERY Right MYRINGOTOMY Medical History Medical History Date Comments Psychiatric problem History of general anesthesia No jevon 01/02/24: Slow to wake Slow to wake up after anesthesia Noted 01/02/24: Slow to wake Does not exercise Noted 01/02/24: Very active, 1-2 FOS without any SOB History of ventricular septal defect Noted 01/02/24: Had as a child per pt Heart murmur Noted 01/02/24: H ad as a child per pt Asthma Noted 01/02/24: T riggers are smoke, last used inhaler 1 mos ago GERD (gastroesophageal reflux disease) Noted 01/02/24: well managed on meds. Eczema Notd 01/02/24: no longer an issue Other acne Noted 01/02/24: F nathan ADD (attention deficit disorder) Noted 01/02/24: Managed w/Vyvanse Anxiety Noted 01/02/24: Depression Noted 01/02/24 Panic attacks Noted 01/02/24 Lung disease Family History Medical History Relation Comments No Known Father Relation Status Comments Father Alive Mother Alive Social History Tobacco Use Types Packs/Day Years [...] 11:16 EST Sexual Orientation Not on file Obstetrics History Last Filed Vital Signs Vital Sign Reading [...] Body Mass Index 50.11 02/03/2024 1625 EDT Plan of Treatment Upcoming Encounters Date Type Department Care Team (Late st Contact Info) Description 08/10/2024 13:[address] [facility] Gastroenterology - [facility] [address] [place], [place] [address] Ilene Humphrey, TECHNICAL MAINTENANCE SPECIALIST 111 [facility], [facility], [address] [place] [address] Health Maintenance Due Date Last Done Comments Hepatitis B Vaccine (1 of 3 - 19+ 3-dose series) 2023 COVID-19 Vaccine (2022-2 4 season) 2024 10/23/2021, 03/26/2021, 03/05/2021 Hepatitis C Screen Completed 03/21/2024 Procedures Procedure Name Priority Date/Time Associated Diagnosis Comments HEPATITIS C AB W REFLEX TO HCV RNA BY PCR Routine 03/21/2024 14:56 EDT from Last 3 Months or Most Recently Relevant to Health Maintenance Results * HEPATITIS C AB W REFLEX TO HCV RNA BY PCR (03/21/2024 14:56 EDT) Hep C Antibody Negative Negative 03/21/2024 23:29 EDT [facility] Blood VENOUS BLOOD / Unknown 03/21/2024 14:56 EDT 03/21/2024 21:37 EDT Provider Outr Resulting Lab CHEMISTRY & BLOOD GAS ORDERABLES [facility] [address] [place], [place] [phone] from Last 3 Months or Most Recently Relevant to Health Maintenance Care Teams Relationship Assoc Relationship Specialty Start Date End Date Vicente Rodriguez, [facility]- [address] [place] [address] [place] [address] PCP - General Family Medicine - Primary Care 11/15/23
--- OUTSIDE RECORDS SUMMARY | 2024-07-04 16:48 | XMS_ITS | Encounter Summary ---
Author Organization [facility] Address [facility] [place] [address] Care Team Providers Care Adult Daycare Coordinator Name Role Phone Jade Price APRN Primary Care Provide r Encounter Details Date Type Department Care Team (Latest Contact Info) Description 07/12/2018 7:00 PM EDT Interpretation Only [place] [address] Tryo Almazan MD [facility] DR P[place]ATR[place] [address] Encounter prior to initiation of medication; Long-term use of high-risk medication Social History Tobacco Use Types Packs/Day Years Used Date Smoking Tobacco: Never Assessed Sex and Gender Information Value Date Recorded Sex Assigned at Not on file Gender Identity Not on file Sexual Orientation Not on file documented as of this encounter Plan of Treatment Scheduled Orders Name Type Priority Associated Diagnoses Orde r Schedule EKG Interpretation Cardiac Services Routine Encounter prior to initiation of medication Long-term use of high-risk medication Ordered: 07/16/2018 documented as of this encounter Visit Diagnoses Diagnosis Encounter prior to initiation of medication Long-term use of high-risk medication documented in this encounter Care Teams Adult Daycare Coordinator Relationship Specialty Start Date End Date Jade Price APRN PCP - General Family Medicine 08/26/16 03/08/21 documented as of this encounter
--- OUTSIDE RECORDS SUMMARY | 2024-07-04 16:48 | XMS_ITS | Encounter Summary ---
Author Organization [facility] Address [address] [place] [address] Care Team Providers Care Tailings Man Name Role Phone Omari Poonam Vicente C [facility] Primary Care Provider Reason for Visit * Reason Onset Date Comments Other 02/06/2024 Encounter Details Date Type Department Care Team (Late st Contact Info) Description 02/06/2024 Telephone [facility] Gastroenterology - [address] [phone] Ilene Humphrey, FAITH 111 [facility], [address] [place] [address] Other Social History Tobacco Use [...] encounter Miscellaneous Notes * Telephone Encounter - JensenDanielEva - 02/06/2024 0941 EDT Called [email or web address] to schedule 6 mo FU with Ilene, amos or OV documented in this encounter Plan of Treatment Upcoming Encounters Date Type Department Care Team (Late st Contact Info) Description 08/10/2024 13:10 EDT Telemedicine [facility] Gastroenterology - [address] [phone] Ilene Humphrey, FERMENTATION SCIENTIST 111 [facility], [address] [place] [phone] documented as of this encounter Visit Diagnoses Not on filedocumented in this encounter Care Teams Tailings Man Relationship Specialty Start Date End Date Vicente Rodriguez, SLD EDUCATIONAL AIDE- [address] [place] [address] [place] [phone] PCP - General Family Medicine - Primary Care 11/15/23 documented as of this encounter
--- OUTSIDE RECORDS SUMMARY | 2024-07-04 16:48 | XMS_ITS | Encounter Summary ---
Author Organization [facility] Address [address] [place] [address] Care Team Providers Care Manager Data Center Name Role Phone Omari Poonam Vicente C [facility] Primary Care Provider Reason for Visit * Reason Onset Date Comments Other 01/13/2024 Encounter Details Date Type Department Care Team (Late st Contact Info) Description 01/13/2024 Telephone [facility] Gastroenterology - [address] [phone] Ilene Humphrey, PASTRYCOOK'S ASSISTANT 111 [facility], [address] [place] [address] Other Social History Tobacco Use [...] * Telephone Encounter - Eva Jensen - 01/13/2024 1112 EDT Called [email or web address] to schedule FU with Ilene at next avail, ov or tele documented in this encounter Plan of Treatment Upcoming Encounters Date Type Department Care Team (Late st Contact Info) Description 08/10/2024 13:10 EDT Telemedicine [facility] Gastroenterology - [facility] [address] [place], [place] [address] Ilene Humphrey, PASTRYCOOK'S ASSISTANT 111 [facility], [facility], [address] [place] [phone] documented as of this encounter Visit Diagnoses Not on filedocumented in this encounter Care Teams Manager Data Center Relationship Specialty Start Date End Date Vicente Rodriguez, [facility]- [address] [place] [address] [place] [phone] PCP - General Family Medicine - Primary Care 11/15/23 documented as of this encounter
--- OUTSIDE RECORDS SUMMARY | 2024-07-04 16:48 | XMS_ITS | Encounter Summary ---
Author Organization [facility] Address [address] [place] [address] Care Team Providers Care Gear Technician Name Role Phone Omari Vicente Levin Robert [facility] Primary Care Provider Reason for Referral * Referral (Routine/Next Available) - Authorization Not Required Specialty Diagnoses / Procedures Referred By [facility] Referred To Contact Diagnoses Elevated anti-tissue transglutaminase (tTG) IgA level Procedures UPPER ENDOSCOPY (EGD) UPPER ENDOSCOPY (EGD) AR ESOPHAGOGASTRODUODENOSCOPY TRANSORAL DIAGNOSTIC AR EGD TRANSORAL BIOPSY SINGLE/MULTIPLE AR ANESTHESIA UPPER GI ENDOSCOPIC PX NOS Ilene Humphrey, FAITH 111 [facility] [address] [place] [address] [facility] [address] [place] [address] Referral ID Status Reason Start Date Expiration Date Visits Requested Visits Authorized [id number] Authorization Not Required 11/22/2023 1 1 Reason for Visit * Reason Onset Date Comments Results 11/22/2023 Encounter Details Date Type Department Care Team ([facility] st Contact Info) Description 11/22/2023 Telephone [facility] Gastroenterology - [facility] [address] [place], [place] [phone] Ilene Humphrey NP [address] [phone] Results Social History Tobacco Use Types Packs/Day Years Used Date Smoking Tobacco: Passive Smo ke Exposure - Never Smoker Sex and Gender Information Value Date Recorded Sex Assigned at Not on file Gender Identity Female 11/15/2023 11:16 EST Sexual Orientation Not on file documented as of this encounter Miscellaneous Notes * Telephone Encounter - Ilene Humphrey NP - 11/22/2023 1450 EST Elevated TTG. Patient will keep gluten in her diet and plan for upper endoscopy with IV sedation. All questions and concerns addressed. documented in this encounter Plan of Treatment Upcoming Encounters Date Type Department Care Team (Late st Contact Info) Description 08/10/2024 13:10 EDT Telemedicine [facility] Gastroenterology - [address] [phone] Ilene Humphrey NP [address] [place] [phone] Pending Results Name Type Priority Associated Diagnoses Date /Time UPPER ENDOSCOPY (EGD) GI Routine Elevated anti-tissue transglutaminase (tTG) IgA level 01/09/2024 8:22 EDT Scheduled Orders Name Type Priority Associated Diagnoses Orde r Schedule UPPER ENDOSCOPY (EGD) GI Routine Elevated Anti-Tissue Transglutaminase (Ttg) Iga Level Expected: 11/22/2023 (Approximate), Expires: 05/22/2025 documented as of this encounter Visit Diagnoses Diagnosis Elevated anti-tissue transglutaminase (tTG) IgA level- Primary documented in this encounter Care Teams Gear Technician Relationship Specialty Start Date End Date Vicente Rodriguez, SPRAY BOOTH OPERATOR- [address] [place] [address] [place] [address] PCP - General Family Medicine - Primary Care 11/15/23 documented as of this encounter
--- OUTSIDE RECORDS SUMMARY | 2024-07-04 16:48 | XMS_ITS | Encounter Summary ---
Author Organization [facility] Address [address] [place] [address] Care Team Providers Care Eligibility Clerk Name Role Phone Vicente Rodriguez [facility] Primary Care Provider Encounter Details Date Type Department Care Team (Latest Contact Info) Description 01/02/2024 14:40 EDT - 01/02/2024 23:59 EDT Hospital Encounter [facility] Pre-Surgical Testing [address] [place], [place] [phone] Discharge Disposition: Home or Self Care Social History Tobacco Use Types Packs/Day Years Used Date Smoking Tobacco: Never Passive Smoke Exposure: Yes Smokeless Tobacco: Never Tobacco Cessation:Counseling Given: Not Answered Alcohol Use Standard Drinks/Week Comments Not Currently [...] - - Weight 145.2 kg (320 lb) 01/02/2024 1443 EDT Height 170.2 cm (5' 7) 01/02/2024 1443 EDT Body Mass Index 50.12 01/02/2024 1443 EDT documented in this encounter Medications at [...] Contact Info) Description 08/10/2024 13:10 EDT Telemedicine [facility] Gastroenterology - [address] [address] Ilene Humphrey NP 111 [facility], [address] [place] [phone] documented as of this encounter Visit Diagnoses Not on filedocumented in this encounter Historical Medications * This list may reflect changes made after this encounter. Medication Sig Dispensed Refills Start Date End Date albuterol 90 mcg/actuation inhaler Inhale 2 Puffs as directed every 4 hours. vit no.124/iron/folic ( VITAMIN ORAL) Take by mouth every morning. added in this encounter Care Teams Eligibility Clerk Relationship Specialty Start Date End Date Vicente Rodriguez, [employer]- [address] [place] [address] [place] [phone] PCP - General Family Medicine - Primary Care 11/15/23 documented as of this encounter
--- OUTSIDE RECORDS SUMMARY | 2024-07-04 16:48 | XMS_ITS | Encounter Summary ---
Author Organization [facility] Address [address] [place] [address] Care Team Providers Care Fish Technologist Name Role Phone Omari Vicente Levin Robert [facility] Primary Care Provider Encounter Details Date Type Department Care Team (Late st Contact Info) Description 01/09/2024 8:11 EDT Anesthesia Event [facility] Endoscopy - Main [address] [address] Bethany Burger MD [address] [place] [address] [address] [place] [address] Anesthesia Record Procedure Summary Procedure Name Responsible Anesthesiologist Anesthesia Start Time Anesthesia Stop Time UPPER ENDOSCOPY (EGD) Bethany Burger MD 01/09/24 0811 01/09/24 0834 Events Date Time Event Comment 01/09/2024 0811 An Start The patient was re-evaluated immediately before moderate or deep sedation use, before anesthesia induction, or before the anesthesia procedure. 0811 An Start Data 0821 Anesthesia Ready 0834 An Stop 0834 an stop data 0838 Handoff to RN I completed my handoff to the receiving nurse during which we: 1. Identified the patient 2. Identified the responsible provider 3. Reviewed the pertinent medical history 4. Discussed the surgical course 5. Reviewed intra-op anesthesia management and issues during anesthesia 6. Set expectations for post-procedure period 7. Allowed opportunity for questions and acknowledgement of understanding. Meds Name Total propOFol (DIPRIVAN) injection 260 mg lactated ringers (LR) infusion 300 mL * Agents Name Aux O2 flow * Blood No blood administrations on file. Lines, Drains, and Airways Type Details Placement Removal Peripheral IV 01/09/24; 0727; 22; B Carter Introcan; Posterior, Right; Hand; Inserted by RN (bonny glass); 1; None; 2% Chlorhexidine with IPA; 01/09/24; 0914; Therapy completed; No complications, Catheter intact, Dressing applied 01/09/24 0727 by Anila Tariq RN 01/09/24 0914 by Jane Alvarado documented in this encounter Social History Tobacco Use Types Packs/Day Years [...] on file documented as of this encounter OR Notes * Anesthesia Postprocedure Evaluation - Bethany Burger MD - 01/09/2024 0839 EDT Patient: Kristi Smith Vital signs were reviewed with the recovery nurse. Complete vitals history is available in the Epicflowsheets. Vitals Value Taken Time BP 133/67 01/09/24 0839 Temp 01/09/24 0839 Resp 20 01/09/24 0839 Pulse From Oximetry 102 BPM 01/09/24 0833 SpO2 96 01/09/24 0839 Heart Rate 90 01/09/24 0839 Last Pain Score - Numeric Pain Level (Scale 1-10): 0 Type of Anesthesia - MAC Anesthesia Post Evaluation Level of consciousness: awake Respiratory status: airway patent and nasal cannula Cardiovascular status: acceptable and appropriate for condition Hydration status: adequate Nausea/Vomiting: none Pain management: adequate Post-Op Assessment: patient tolerated procedure well with no complications Patient participation: able to participate Disposition: outpatient/home Anesthesia Complications: No apparent anesthesia complications * Anesthesia Preprocedure Evaluation - Bethany Burger MD - 01/07/2024 1716 EDT Anesthesia Preprocedure Evaluation Procedure: UPPER ENDOSCOPY (EGD) Diagnosis: Elevated anti-tissue transglutaminase (tTG) IgA level [R76.8] Patient Medical History, including Anesthesia History reviewed. Chart and Nursing Notes reviewed, including NPO status and Medication History. Additional ROS/History Findings: Past Medical History: Diagnosis Date ADD (attention [...] after anesthesia Noted 01/02/24: Slow to wake Relevant Problems No relevant active problems Past Surgical History: Procedure Laterality Date ANKLE FRACTURE SURGERY Right MYRINGOTOMY WISDOM TOOTH EXTRACTION Past Anesthetics [x] None on file Review of Systems Constitutional: Negative for chills and fever. HENT: Negative for congestion and sore throat. Respiratory: Negative for cough and shortness of breath. Cardiovascular: Negative for chest pain. Gastrointestinal: Negative for abdominal pain, heartburn, nausea and vomiting. Musculoskeletal: Negative for neck pain. SOCIAL HISTORY: [] None [] Current smoking [] Vaping [] Marijuana [] Alcohol Social History Tobacco Use Smoking Status Never Passive exposure: Yes Smokeless Tobacco Never Social History Substance and Sexual Activity Drug Use Not Currently Social History Substance and Sexual Activity Alcohol Use Not Currently FAMILY HISTORY: []No family history of allergic reactions to anesthesia Current Outpatient Medications on File Prior to Encounter Medication Sig Dispense Refill albuterol 90 mcg/actuation inhaler Inhale 2 Puffs as directed every 4 hours. (Patient not taking: Reported on 01/09/2024) guanFACINE (INTUNIV) 1 mg extended release tablet Take 1 mg by mouth daily. (Patient not taking: Reported on 11/18/2023) melatonin 3 mg tablet Take by mouth. (Patient not taking: Reported on 11/18/2023) omeprazole (PRILOSEC) 40 mg capsule Take 1 Capsule by mouth daily. (Patient taking differently: Take 1 Capsule by mouth every morning.) 90 Capsule 1 Prazosin (MINIPRESS) 2 mg capsule Take 2 mg by mouth at bedtime. (Patient not taking: Reported on 11/18/2023) vit no.124/iron/folic ( VITAMIN ORAL) Take by mouth every morning. traZODone (DESYREL) 100 mg tablet Take 3 Tablets by mouth at bedtime. VYVANSE 10 mg capsule Take 1 Capsule by mouth every morning. No current facility-administered medications on file prior to encounter. Current Outpatient Medications Medication albuterol 90 mcg/actuation inhaler guanFACINE (INTUNIV) 1 mg extended release tablet melatonin 3 mg tablet omeprazole (PRILOSEC) 40 mg capsule Prazosin (MINIPRESS) 2 mg capsule vit no.124/iron/folic ( VITAMIN ORAL) traZODone (DESYREL) 100 mg tablet VYVANSE 10 mg capsule Current Facility-Administered Medications Medication Route Frequency diphenhydrAMINE (BENADRYL) injection 25 mg intravenous Once PRN sodium chloride 0.9 % (NS) infusion intravenous PRN Or lactated ringers (LR) infusion intravenous PRN lidocaine 1 % injection 2 mg intradermal PRN lidocaine 1 % injection 2 mg intradermal PRN sodium chloride 0.9 % (flush) flush 3 mL intravenous PRN sodium chloride 0.9 % (flush) flush 5 mL intravenous Q8H No Known Allergies No results found for: WBC, HGB, HCT, MCV, PLT No results found for: NA, K, KEXT, CL, CLEXT, CO2, CO2EXT No results found for: BUN No results found for: CREATININE, CREATININEEX No results found for: INR, PROTIME No results found for: PTT UPT: No results found for: PREGUR, PREGNANCYTE, HCGPREG COVID: [] None on file Lab Results Component Value Date COVIDUV Negative 04/30/2022 Blood Type: No results found for: ABO, LABRH, LABANTI, SPECEXP EKG: [x] None on file ECHO: [x] None on file Cardiac Stress: [x] None on file Left Heart Cath: [x] None on file BP (!) 143/71 Temp 36 ??C (96.8 ??F) (Temporal) Resp 16 Ht 170.2 cm (67) Wt (!) 145.2 kg (320 lb) LMP 12/04/2023 (Approximate) SpO2 97% BMI 50.12 kg/m?? NPO Status: Liquids: [x] Prior to midnight Solids: [x] Prior to midnight Home Acetaminophen: Yes [] No [x]. If, yes: Time: Physical Exam Airway Mallampati: I TM distance: >3 FB Neck ROM: full Cardiovascular Rate: normal Dental - normal exam Pulmonary - normal exam Abdominal Anesthesia Plan ASA 3 Anesthesia Type - MAC Anesthesia plan and risks discussed. Informed consent obtained from patient. Specific risks discussed were bleeding, , headache, myocardial infarction, nerve damage, stroke, vomiting, post-op intubation, nausea, infection, ICU placement, dental injury and blindness. The preoperative history and physical which was performed within 30 days of this procedure, has been reviewed and the clinically appropriate elements of the physical examination have been repeated. There are no changes to the documented history and physical or, if so, such changes are documented inthis note PAT Note Notes from 12/10/23 through 01/09/24 No notes of this type exist for this encounter. documented in this encounter Plan of Treatment Upcoming Encounters Date Type Department Care Team (Late st Contact Info) Description 08/10/2024 13:10 EDT Telemedicine [facility] Gastroenterology - [facility] [address] [place] [address] Ilene Humphrey, FAITH [address] [facility], [facility], [address] [place] [address] documented as of this encounter Visit Diagnoses Not on filedocumented in this encounter Administered Medications Inactive Administered Medications - up to 3 most recent administrations Medication Order MAR Action Action Date Dose Rate Site lactated ringers (LR) infusion 30 mL/hr, intravenous, PRN, Starting on 01/09/24 at 0708, Until Damaris 01/12/24 at 0209, Routine, Preprocedure Continued by Anesthesia 01/09/2024 8:11 EDT 30 mL/hr New Bag 01/09/2024 7:27 EDT 30 mL/hr 30 mL/hr propOFol (DIPRIVAN) injection intravenous, PRN, Starting on 01/09/24 at 0816, Until Tue01/09/24 at 0838, Routine, Anesthesia Intraprocedure Given 01/09/2024 8:25 EDT 50 mg Given 01/09/2024 8:23 EDT 30 mg Given 01/09/2024 8:19 EDT 80 mg documented in this encounter Care Teams Fish Technologist Relationship Specialty Start Date End Date Vicente Rodriguez, [facility]- [address] [place] [address] [place] [address] PCP - General Family Medicine - Primary Care 11/15/23 documented as of this encounter
== END 2024-07-04 16:39 | disposition home or self-care (01) ==
LOC: LBO 16:40
PROVIDERS: Visit Provider Advanced Practice Midwife
DX: Z3A.01 Less than 8 weeks gestation of pregnancy (principal); O26.891 Other specified pregnancy related conditions, first trimester; Z67.91 Unspecified blood type, Rh negative; N92.6 Irregular menstruation, unspecified; E66.01 Morbid (severe) obesity due to excess calories; Z68.43 Body mass index [BMI] 50.0-59.9, adult
CPT/HCPCS: 36415; 86850; 86900; 86901

== ENCOUNTER 2024-07-27 00:13 | Outpatient (CLI) | payer MEDICAID, SELFPAY ==
--- NOTE | 2024-07-27 07:00 | DI.US_ITS ---
Exam(s) US OB 1ST TRIMESTER EXAM: US OB 1ST TRIMESTER CLINICAL HISTORY: dating and viability,[id number].01. TECHNIQUE: First trimester obstetrical ultrasound was performed. COMPARISON: US US PELVIS TRANSVAGINAL from 01/13/2022 FINDINGS: There is an intrauterine gestational sac which contains a yolk sac and viable pole which exhibi ts heart rate of 159 bpm. West Brow-rump length measurement is 11 mm, corresponding to 7 weeks and 1 day gestational age. Yolk sac noted with diameter of 3 mm. There appears to be a small subchorionic hemorrhage measuring 12 x 3 x 7 mm. Maternal ovaries: Left ovary measures 3.9 x 1.7 x 1.7 cm. Appears unremarkable. Right ovary was not identified. There is no fluid in the cul-de-sac and adnexal regions. IMPRESSION:: Single viable intrauterine gestation which is approximately 7 weeks and 1 day gestation al age by crown rump length measurement, implying MICHELLE of 03/14/2025. There is a small subchorionic hemorrhage measuring 12 x 3 x 7 mm. There is no free fluid evident in the cul-de-sac. DATA REPOSITORY:
== END 2024-07-27 00:33 ==
LOC: DI 00:14
PROVIDERS: Visit Provider Advanced Practice Midwife
DX: Z3A.01 Less than 8 weeks gestation of pregnancy (principal); Z34.91 Encounter for supervision of normal pregnancy, unspecified, first trimester
CPT/HCPCS: 76801

== ENCOUNTER 2024-08-24 01:19 | Outpatient (CLI) | payer MEDICAID, SELFPAY ==
[2024-08-24 11:45] LABS: Panorama Kit Sent via Fed Ex
[2024-08-24 11:56] LABS: Abs Immature Grans 0.07 10^3/uL (0.0-0.06); Absolute Basophil Count 0.01 10^3/uL (0.0-0.2); Absolute Eosinophil Count 0.01 10^3/uL (0.0-0.7); Absolute Lymphocyte Count 2.56 10^3/uL (1.2-3.4); Absolute Monocyte Count 0.46 10^3/uL (0.1-0.8); Absolute Neutrophil Count 10.55 10^3/uL (1.2-6.7); Basophils % 0.1 %; Eosinophils % 0.1 %; HCT 37.9 % (36.0-46.0); HGB 12.5 g/dL (11.2-15.7); Immature Grans % 0.5 %; Lymphocytes % 18.7 %; MCV 79 fL (80-95); MPV 9.6 fL (8.0-11.0); Monocytes % 3.4 %; Neutrophils % 77.2 %; Platelet Count 282 10^3/uL (130-400); RDW 14.2 % (11.7-14.6); RDW-SD 41.1 fL; WBC 13.67 10^3/uL (4.4-10.8)
[2024-08-24 12:10] LABS: Glucose,1 Hr (Glucola) 139 mg/dL (80-140)
[2024-08-24 12:24] LABS: TSH (W/Ref FT4) 1.86 uIU/mL (0.36-3.74)
[2024-08-24 13:10] LABS: Lab Add On Test DONE
[2024-08-24 13:13] LABS: Hemoglobin A1C 5.9 % (<5.7)
[2024-08-24 13:33] LABS: ALT 30 U/L (14-59); AST 13 U/L (15-37); Albumin 3.2 g/dL (3.4-5.0); Alkaline Phosphatase 70 U/L (46-116); Anion Gap 14.5 mmol/L (3-11); BUN 6 mg/dL (7-18); Bilirubin, Total 0.26 mg/dL (0.2-1.0); CO2 21.5 mmol/L (21.0-32.0); CREATININE 0.7 mg/dL (0.55-1.02); Calcium 9.5 mg/dL (8.5-10.1); Chloride 105 mmol/L (98-107); Glucose 140 mg/dL (74-106); Potassium 3.6 mmol/L (3.5-5.1); Sodium 141 mmol/L (136-145); Total Protein 7.2 g/dL (6.4-8.2)
[2024-08-24 18:52] LABS: Hepatitis B Surface Ag Negative (Negative)
[2024-08-24 19:00] LABS: HIV-1/2 Ag & Ab Screen Negative (Negative)
[2024-08-24 19:26] LABS: Hepatitis C Ab w Rflx HCV PCR Negative (Negative)
[2024-08-27 10:52] LABS: Rubella IgG Ab (UVM) Positive (See Note); Varicella IgG Antibody Positive (See Note)
[2024-08-27 15:18] LABS: Syphilis IgG w/Reflex Nonreactive (Nonreactive)
== END 2024-08-24 01:20 | disposition home or self-care (01) ==
LOC: LBO 01:19
PROVIDERS: Visit Provider Advanced Practice Midwife
DX: Z34.91 Encounter for supervision of normal pregnancy, unspecified, first trimester (principal); E66.01 Morbid (severe) obesity due to excess calories; Z68.43 Body mass index [BMI] 50.0-59.9, adult; K76.0 Fatty (change of) liver, not elsewhere classified
CPT/HCPCS: 36415; 80053; 82950; 86787; 86803; 86850; 86900; 86901; 87340; 87389; 83036; 84443; 85025; 86762; 86780

== ENCOUNTER 2024-08-24 11:39 | Outpatient (REF) | payer MEDICAID, SELFPAY ==
[2024-08-24 13:18] LABS: *AMPHETAMINES SCREEN URINE Negative (Negative); *BARBITURATES SCREEN URINE Negative (Negative); *BENZODIAZEPINES SCREEN URINE Negative (Negative); Cannabinoids THC Positive (Negative); Cocaine Screen,Urine Negative (Negative); METHADONE URINE SCREEN Negative (Negative); OPIATES URINE SCREEN Negative (Negative)
[2024-08-24 13:19] LABS: Tricyclic Antidepressants Negative (Negative)
[2024-08-27 12:37] LABS: Chlamydia Result Negative (Negative); GC Result Negative (Negative)
[2024-08-28 12:37] LABS: Fentanyl Scr w/Rfx Confirm Positive ng/mL (<1)
[2024-08-28 16:00] LABS: Buprenorphine Negative ng/mL (Cutoff: 5.0); Norbuprenorphine Negative ng/mL (Cutoff: 2.5)
[2024-08-28 16:09] LABS: Fentanyl Confirmation Negative ng/mL (<2); Norfentanyl Confirmation Negative ng/mL (<10)
== END 2024-08-24 11:40 | disposition home or self-care (01) ==
LOC: LBN 11:39
PROVIDERS: Visit Provider Advanced Practice Midwife
DX: Z3A.11 11 weeks gestation of pregnancy (principal); Z34.81 Encounter for supervision of other normal pregnancy, first trimester
CPT/HCPCS: 80307; 80348; 80354; 87491; 87591; 87086

== ENCOUNTER 2024-09-14 01:32 | Outpatient (CLI) | payer MEDICAID, SELFPAY ==
[2024-09-14 10:02] LABS: Glucose 1 Hour 187 mg/dL
[2024-09-14 11:41] LABS: Glucose 3 Hour 92 mg/dL
== END 2024-09-14 01:33 | disposition home or self-care (01) ==
LOC: LBO 01:32
PROVIDERS: Advanced Practice Midwife; Visit Provider Obstetrics & Gynecology
DX: R73.09 Other abnormal glucose (principal); Z34.91 Encounter for supervision of normal pregnancy, unspecified, first trimester
CPT/HCPCS: 36415; 82105; 82951

== ENCOUNTER 2024-09-28 01:09 | Outpatient (CLI) | payer MEDICAID, SELFPAY ==
[2024-10-01 15:49] LABS: AFP 16.5 ng/mL; Calculated age at EDD 20 years; Cigarette smoking status non-Smoker; GA used in risk estimate Scan estimate; IVF Pregnancy No; Initial or repeat testing Initial testing; Insulin dependent diabetes No; Maternal Weight 333 lbs; Number of Fetuses 1; Physician Phone Number 802-748-7300; Prev Pregnancy w/NTD No; RECOMMENDED FOLLOW UP None.; Results Summary Normal risk
== END 2024-09-28 01:10 | disposition home or self-care (01) ==
LOC: LBO 01:09
PROVIDERS: Visit Provider Advanced Practice Midwife
DX: Z34.91 Encounter for supervision of normal pregnancy, unspecified, first trimester (principal)
CPT/HCPCS: 36415; 82105

== ENCOUNTER 2024-10-05 01:08 | Outpatient (CLI) | payer MEDICAID, SELFPAY ==
[2024-10-05 17:39] LABS: COMMENT (LAB VIEW ONLY) 92.75 mg/dL; PROTEIN 11.7 mg/dL; Prot/Crea Ur Ratio 0.12
[2024-10-05 17:42] LABS: ALT 42 U/L (14-59); AST 16 U/L (15-37); CREATININE 0.6 mg/dL (0.55-1.02)
== END 2024-10-05 01:09 | disposition home or self-care (01) ==
LOC: LBO 01:08
PROVIDERS: Advanced Practice Midwife; Visit Provider Advanced Practice Midwife
DX: R03.0 Elevated blood-pressure reading, without diagnosis of hypertension (principal)
CPT/HCPCS: 36415; 82105; 82565; 84156; 84450; 84460

== ENCOUNTER 2024-12-14 09:33 | Outpatient (CLI) | payer MEDICAID, SELFPAY ==
[2024-12-14 10:38] VITALS: BP 130/62; PULSE 100; TEMP 36.6
--- NOTE | 2024-12-19 09:40 | PGE_ITS ---
Date of Service Date of service: 01/11/25 Time of Service: 13:00 Assessment and Plan Assessment and plan (1) Pelvic pain: Assessment and plan: NST reactive and reassuring. No contractions on the monitor. No other con cerning symptoms and assessment is reassuring. Patient declines SVE. Discussed utility of abdominal support belt, hydration, and tylenol. Labor precautions reviewed, and patient instructed to have a low theshold for seeking immediate medical evaluation again if concerning symptoms arise or current symptoms worsen / progress. Subjective Subjective Interval history since last seen: Late entry due to pace of care on 12/14 and system novelty: 19 yo at 27 weeks presents with cc of pelvic / abdominal pain since this AM. Denies nausea / vomiting. Reports good movement. Denies leakage or vaginal bleeding. No sexual intercourse in the last 72 hours. No urinary symptoms and denies vaginal discharge / itching / irritation. Exam Const General: cooperative and healthy appearing Nutritional Appearance: well nourished Orientation: alert and awake HENMT Head: normocephalic Resp Effort & Inspection: normal respiratory effort GI Inspection: other (Soft, gravid, non-tender even w/deep palpation. No palpable contractions. ) Skin General skin exam: no rashes or lesions noted Neuro General: patient alert and patient awake Extrem General: normal to inspection Psych Appearance: well kempt Mental Status: mental status grossly normal Affect: normal affect Objective VS WNL for patient and appropriate Time Spent with Patient Time Spent with Patient: 25-34 minutes Time was spent: preparing to see the patient(eg.review tests), obtaining and/or reviewing separately otained hiistory, ordering medications,tests, procedures and indepentently interpreting results
== END 2024-12-14 11:25 | disposition other institution (70) ==
LOC: BCD 09:34 → OBS 10:36
PROVIDERS: Visit Provider Obstetrics & Gynecology
DX: R10.2 Pelvic and perineal pain (principal); O26.892 Other specified pregnancy related conditions, second trimester; Z3A.27 27 weeks gestation of pregnancy
CPT/HCPCS: 59025

== ENCOUNTER 2025-01-02 03:56 | Outpatient (CLI) | payer MEDICAID, SELFPAY ==
[2025-01-02 14:17] LABS: Abs Immature Grans 0.07 10^3/uL (0.0-0.06); Absolute Eosinophil Count 0.01 10^3/uL (0.0-0.7); Absolute Lymphocyte Count 2.26 10^3/uL (1.2-3.4); Absolute Monocyte Count 0.63 10^3/uL (0.1-0.8); Basophils % 0.1 %; Eosinophils % 0.1 %; HCT 32.9 % (36.0-46.0); HGB 10.8 g/dL (11.2-15.7); Immature Grans % 0.5 %; Lymphocytes % 15.2 %; MCH 26.2 pg (27.0-33.0); MCHC 32.8 % (32.0-36.0); MCV 80 fL (80-95); MPV 9.9 fL (8.0-11.0); Monocytes % 4.2 %; Neutrophils % 79.9 %; Platelet Count 310 10^3/uL (130-400); RBC 4.13 10^6/uL (3.93-5.22); RDW 14.4 % (11.7-14.6); RDW-SD 41.4 fL; WBC 14.89 10^3/uL (4.4-10.8)
[2025-01-02 14:21] LABS: Absolute Basophil Count 0.01 10^3/uL (0.0-0.2)
[2025-01-02 14:50] LABS: *AMPHETAMINES SCREEN URINE Negative (Negative); *BARBITURATES SCREEN URINE Negative (Negative); *BENZODIAZEPINES SCREEN URINE Negative (Negative); Cannabinoids THC Positive (Negative); Cocaine Screen,Urine Negative (Negative); METHADONE URINE SCREEN Negative (Negative); OPIATES URINE SCREEN Negative (Negative)
[2025-01-02 15:10] LABS: Tricyclic Antidepressants Negative (Negative)
[2025-01-03 11:50] LABS: Fentanyl Scr w/Rfx Confirm Positive ng/mL (<1)
[2025-01-04 09:55] LABS: Fentanyl Confirmation Negative ng/mL (<2); Norfentanyl Confirmation Negative ng/mL (<10)
[2025-01-04 12:59] LABS: AFP 49.4 ng/mL; Calculated age at EDD 20 years; Cigarette smoking status non-Smoker; GA used in risk estimate Scan estimate; IVF Pregnancy No; Initial or repeat testing Initial testing; Insulin dependent diabetes No; Maternal Weight 337 lbs; Number of Fetuses 1; Physician Phone Number 802-748-7300; Prev Pregnancy w/NTD No
== END 2025-01-02 03:57 | disposition home or self-care (01) ==
LOC: LBO 03:56
PROVIDERS: Advanced Practice Midwife; Visit Provider Obstetrics & Gynecology
DX: O26.893 Other specified pregnancy related conditions, third trimester (principal); Z67.91 Unspecified blood type, Rh negative; Z3A.01 Less than 8 weeks gestation of pregnancy; O99.323 Drug use complicating pregnancy, third trimester; F12.90 Cannabis use, unspecified, uncomplicated
CPT/HCPCS: 36415; 80307; 80354; 86850; 86900; 86901; 90384; 82105; 85025